=== PATIENT | female | born 1945 | race Caucasian/White ===

== ENCOUNTER 2018-08-15 16:45 | Outpatient (CLI) | payer MEDICARE, SELFPAY ==
[2018-08-15 11:19] LABS: Anion Gap 6.8 mmol/L (3-11); BUN 20 mg/dL (7-18); CO2 27.2 mmol/L (21.0-32.0); CREATININE 0.89 mg/dL (0.55-1.02); Calcium 8.9 mg/dL (8.5-10.1); Chloride 106 mmol/L (98-107); Cholesterol 156 mg/dL (50-200); Glucose 87 mg/dL (70-100); HDL Cholesterol 74 mg/dL (40-60); LDL CHOLESTEROL 74 mg/dL (<100); Potassium 5.1 mmol/L (3.5-5.1); Sodium 140 mmol/L (136-145); Triglyceride 47 mg/dL (30-150)
== END 2018-08-15 17:05 ==
DX: I10 Essential (primary) hypertension (principal); I21.4 Non-ST elevation (NSTEMI) myocardial infarction; I51.7 Cardiomegaly; E78.00 Pure hypercholesterolemia, unspecified
CPT/HCPCS: 36415; 80048; 80061; 83721

== ENCOUNTER 2018-12-20 12:52 | Outpatient (REF) | payer MEDICARE, SELFPAY ==
[2018-12-20 13:51] LABS: Bilirubin Negative (Negative); Blood Moderate (Negative); Clarity Clear; Glucose Negative (Negative); Ketones Negative (Negative); Leukocyte Esterase Trace (Negative); Nitrite Negative (Negative); Specific Gravity 1.015 (1.005-1.025); Urobilinogen 0.2 EU/dL (Up TO 0.2)
[2018-12-20 14:05] LABS: Epithelial Cells Few HPF (Negative); WBC >50 HPF (0-5)
[2018-12-20 14:06] LABS: Bacteria Moderate HPF (Negative); C & S Indicated? Yes; Casts Negative LPF (Negative); Crystals Negative HPF (Negative); Mucus Negative (Negative); Other Cells Few Renal (Negative)
== END 2018-12-20 13:12 ==
LOC: LBN 12:52
DX: N30.01 Acute cystitis with hematuria (principal)
CPT/HCPCS: 87077; 81003; 81015; 87086; 87186

== ENCOUNTER 2019-08-07 02:40 | Outpatient (CLI) | payer MEDICARE, SELFPAY ==
[2019-08-07 11:29] LABS: ALT 33 U/L (14-59); AST 28 U/L (15-37); Albumin 3.6 g/dL (3.4-5.0); Alkaline Phosphatase 80 U/L (46-116); Anion Gap 7.1 mmol/L (3-11); BUN 22 mg/dL (7-18); Bilirubin, Total 0.7 mg/dL (0.2-1.0); CO2 27.9 mmol/L (21.0-32.0); CREATININE 0.83 mg/dL (0.55-1.02); Calcium 9.1 mg/dL (8.5-10.1); Chloride 105 mmol/L (98-107); Glucose 93 mg/dL (70-100); Potassium 4.5 mmol/L (3.5-5.1); Sodium 140 mmol/L (136-145); Total Protein 6.5 g/dL (6.4-8.2)
== END 2019-08-07 03:00 ==
DX: I10 Essential (primary) hypertension (principal); I87.2 Venous insufficiency (chronic) (peripheral)
CPT/HCPCS: 36415; 80053

== ENCOUNTER 2020-10-21 02:49 | Outpatient (CLI) | payer MEDICARE, SELFPAY ==
[2020-10-21 12:52] LABS: ALT 67 U/L (14-59); AST 52 U/L (15-37); Albumin 3.7 g/dL (3.4-5.0); Alkaline Phosphatase 81 U/L (46-116); Anion Gap 5.8 mmol/L (3-11); BUN 23 mg/dL (7-18); Bilirubin, Total 0.6 mg/dL (0.2-1.0); CO2 29.2 mmol/L (21.0-32.0); CREATININE 0.88 mg/dL (0.55-1.02); Calcium 8.9 mg/dL (8.5-10.1); Calculated LDL 85 mg/dL (<100); Chloride 104 mmol/L (98-107); Cholesterol 171 mg/dL (<200); Glucose 81 mg/dL (74-106); HDL Cholesterol 76 mg/dL (40-60); Potassium 4.5 mmol/L (3.5-5.1); Sodium 139 mmol/L (136-145); Total Protein 6.4 g/dL (6.4-8.2); Triglyceride 53 mg/dL (<150)
== END 2020-10-21 03:09 ==
DX: I10 Essential (primary) hypertension (principal)
CPT/HCPCS: 36415; 80053; 80061

== ENCOUNTER 2021-07-17 09:38 | Outpatient (CLI) | payer MEDICARE, SELFPAY ==
--- NOTE | 2021-07-17 09:30 | RT.EKG_ITS ---
APPROVED REPORT Exam: Resting ECG Reason for Exam: Pre-op Patient Location: O HR:55 bpm ECG Measurements Heart Rate 55 AXIS HI 174 P 73 QRSd 94 QRS -36 QT 428 T 37 QTc 410 Conclusion Sinus bradycardia...rate< 60 Left axis deviation...QRS axis (-30,-90)
== END 2021-07-17 09:39 | disposition home or self-care (01) ==
LOC: DI.CM 09:39
DX: Z01.818 Encounter for other preprocedural examination (principal)
CPT/HCPCS: 93010

== ENCOUNTER 2021-07-30 02:14 | Outpatient (CLI) | payer MEDICARE, SELFPAY ==
[2021-07-30 09:28] LABS: Source Nasal/Nares
[2021-07-30 12:04] LABS: COVID-19 PCR Negative (Negative)
== END 2021-07-30 02:15 | disposition home or self-care (01) ==
LOC: LBO 02:14
PROVIDERS: Visit Provider Ophthalmology
DX: Z20.822 Contact with and (suspected) exposure to COVID-19 (principal); Z01.818 Encounter for other preprocedural examination
CPT/HCPCS: 87635

== ENCOUNTER 2021-08-01 07:21 | Day surgery (SDC) | payer MEDICARE, SELFPAY ==
[2021-08-01] MEDS: Tropicam./Phenyleph. (1/2.5%) 5 ML BTL OD ×3 (07:59→08:17)
[2021-08-01 08:13] VITALS: BP 164/56; PULSE 53; RESP 18; TEMP 36.5; O2SAT 97
--- NOTE | 2021-08-01 08:22 | ANES.PREOP_ITS ---
General Info Date of Service Date Performed: 08/01/21 Height: 5 ft 3 in Weight: 61.8 kg Body Mass Index (BMI): 24.1 Surgical Procedure: Operation Date: 08/01/21 09:40 Proposed Procedures Side Surgeon p Cataract Extraction with IOL Implant Right Orlando Santos MD Meds Allergies and Home Medications Allergies Allergy/AdvReac Type Severity Reaction Status Date / Time amoxicillin [From Augmentin] AdvReac Intermediate Diarrhea Verified 08/01/21 08:03 clavulanic acid AdvReac Intermediate Diarrhea Verified 08/01/21 08:03 [From Augmentin] Home Medication Medication Instructions Recorded One Daily Women 50 Plus 1 ea PO daily prn 08/13/16 aspirin [Aspir 81] 1 tab PO DAILY tab-cap 01/26/18 cholecalciferol (vitamin D3) 1 cap PO DAILY 02/16/18 [Vitamin D3] magnesium oxide 1 cap PO DAILY 02/16/18 garlic 1 ea PO DAILY 04/25/18 atorvastatin 20 mg tablet 20 mg PO DAILY #90 tab 12/09/20 metoprolol succinate 25 mg 25 mg PO DAILY #90 tab 12/09/20 tablet,extended release 24 hr lisinopril 2.5 mg tablet 2.5 mg PO DAILY #90 tab-cap 06/03/21 Current Visit Medications: Current Medications Generic Name Dose Route Start Last Admin Trade Name Freq PRN Reason Stop Dose Admin Acetaminophen 1,000 mg 08/01/21 06:00 Acetaminophen 500 Mg Tab PO Q4H PRN PRN Miscellaneous Medication 0 ml 08/01/21 06:00 Prednisolone 1%, Moxifloxacin 0.5%, Nepafenac 0.1% 5ml Btl OD DIRECTED [facility] Miscellaneous Medication 0 ml 08/01/21 06:00 08/01/21 08:17 Tropicam./Phenyleph. (1/2.5%) 5 Ml Btl OD 1 drp DIRECTED [facility] Administration Tetracaine HCl 0 ml 08/01/21 06:00 Tetracaine 0.5% 4 Ml Btl OD DIRECTED [facility] PFSH Active Problems Active Problems: Problem Status Onset Code Allergic rhinitis J30.9 Pre-op examination Z01.818 Nuclear sclerotic cataract of right eye H25.11 Hyperlipidemia E78.5 Venous insufficiency 07/23/16 I87.2 Uterine fibroid D25.9 Transient global amnesia 12/04/16 G45.4 Tinnitus 10/07/15 H93.19 Sensorineural hearing loss, unilateral 10/07/15 H90.5 Primary osteoarthritis of left hip 12/04/16 M16.12 Positional vertigo of both ears 07/25/15 Plantar wart of both feet 08/24/17 B07.0 Osteoporosis M81.0 NSTEMI (non-ST elevated myocardial infarction) 01/26/18 I21.4 Mass of uterus determined by ultrasound 12/04/16 N85.8 Lipoma of neck 07/25/15 D17.0 Essential hypertension 01/26/18 I10 Endometrial thickening on ultrasound 12/08/16 R93.89 Elevated LDL cholesterol level E78.00 Cardiomegaly I51.7 Anxiety 01/26/18 F41.9 Medical History Medical History Abnormal auditory perception (10/07/15) Abnormal finding on ultrasound (12/22/16) Anxiety (01/26/18) Cardiomegaly Cardiomegaly F/U w/ PCP Elevated LDL cholesterol level Endometrial thickening on ultrasound (12/08/16) Essential hypertension (01/26/18) Hyperlipidemia Lipoma of neck (07/25/15) Mass of uterus determined by ultrasound (12/04/16) NSTEMI (non-ST elevated myocardial infarction) (01/26/18) [place]18/18 [place] [facility] [place] Osteoporosis Plantar wart of both feet (08/24/17) Positional vertigo of both ears (07/25/15) Primary osteoarthritis of left hip (12/04/16) Sensorineural hearing loss, unilateral (10/07/15) Tinnitus (10/07/15) Transient global amnesia (12/04/16) One episode. CT negative. Now on ASA 325 mg daily Uterine fibroid Venous insufficiency Venous insufficiency (07/23/16) Surgical History Surgical History Appendectomy (~07/2009) Colonoscopy - MAC (02/01/17) Ligation of fallopian tube (~1979) Tobacco Smoking/Tobacco Use Status: Never Passive smoking exposure: Yes Second hand exposure: Yes Alcohol Alcohol Intake: never Substance Use Substance use: Never Substance use type: does not use Counseling given: No Counseling provided: none Vital Signs and Lab Results Vital Signs Most Recent Vital Signs in EMR: Most Recent Vital Signs Temp Pulse Resp BP Pulse Ox 36.5 C 53 L 18 164/56 H 97 08/01/21 08:13 08/01/21 08:13 08/01/21 08:13 08/01/21 08:13 08/01/21 08:13 Lab Results Blood Type / Crossmatch: No Data to Display Complete Blood Count: No Data to Display Complete Metabolic Panel: No Data to Display Liver Function Panel: No Data to Display Coagulation Panel: No Data to Display Cardiac Panel: No Data to Display Arterial Blood Gas: No Data to Display Venous Blood Gas: No Data to Display Pancreas Panel: No Data to Display Thyroid Panel: No Data to Display Infectious Disease: Coronavirus (COVID-19)(PCR) Negative (Negative) 07/30/21 08:42 07/30/21 Coronavirus 2019 Source Nasal/Nares 07/30/21 08:42 07/30/21 Blood Cultures: No Data to Display Toxicology Panel: No Data to Display Imaging and Studies Imaging and Studies EKG Summary: 06/2021: Exam: Resting ECG Reason for Exam: Pre-op Patient Location: O HR:55 bpm ECG Measurements Heart Rate 55 AXIS MT 174 P 73 QRSd 94 QRS -36 QT 428 T37 QTc 410 Conclusion Sinus bradycardia...rate< 60 Left axis deviation...QRS axis (-30,-90) Echocardiogram Summary: 04/28/2018: Summary: 1. Left ventricle: The cavity size was normal. Systolic function was normal. The estimated ejection fraction was 60-65%. Some parameters suggest diastolic dysfunction. There was no evidence of elevated ventricular filling pressure by Doppler parameters. 2. Aortic valve: There was mild regurgitation. 3. Mitral valve: There was mild regurgitation. 4. Right ventricle: The cavity size was normal. Wall thickness was normal. Systolic function was normal. 5. Right atrium: The atrium was mildly dilated. 6. Atrial septum: There was a small patent foramen ovale. There was a small [id number] shunt. 7. Tricuspid valve: There was moderate regurgitation. 8. Pulmonary arteries: Pulmonary systolic pressure was in the range of 30mm Hg to 40mm Hg. 9. Inferior vena cava: The vessel was patent and normal in size. The respirophasic diameter changes were in the normal range (greater than or equal to 50%), consistent with normal central venous pressure. Anesthesia Assessment and Plan Anesthesia History Personal History: No History of Anesthesia Complications Family History: No Family History of Anesthesia Complications Exercise Tolerance Exercise Tolerance: Metabolic Equivalents>4 Cardiac & Pulmonary Exam Cardiac Exam: Normal S1/S2 Heart Sounds Pulmonary Exam: Clear Bilateral Breath Sounds Airway Exam Known Difficult Airway: No Mallampati Class: 2 Mouth Opening: Normal (> 3cm) Thyromental Distance: Greater than 3 cm Neck Range of Motion: Full ROM Neck Circumference: Normal Teeth Condition: Removable Dentures/Plates Upper ASA Classification ASA Score: ASA 3 Emergency Case?: No NPO Status NPO Status: NPO Clears >2 hours, Solids >8 hours Anesthesia Plan Resuscitation Status: Full Code Anesthesia Technique: MAC Anesthesia Airway Planned: Natural Airway Pain Management: Surgeon and patient request nerve block Monitors Used: Standard Monitors
[2021-08-01 08:25] VITALS: BMI 24.1
[2021-08-01] MEDS: Povidone-Iodine Ophth 30 ML BTL (09:11)
[2021-08-01] MEDS: Lidocaine 1% Pres-Free 5 ML VIAL (09:13)
[2021-08-01] MEDS: Lidocaine 2% Jelly 6 ML SYR (09:13)
[2021-08-01] MEDS: Duovisc Viscoelastic System EACH 1 EACH (09:14)
[2021-08-01] MEDS: Balanced Salt Soln.-PLUS 500 ML BAG (09:15)
[2021-08-01] MEDS: Tetracaine 0.5% 4 ML BTL OD (09:30)
--- NOTE | 2021-08-01 09:39 | W.PM.DSUDISC ---
Discharge Plan Disposition Patient Disposition: HOME Condition: Good Discharge Details Attending Provider: Orlando Santos Primary Care Provider: Natali Lewis Home Meds and New Rx's Prescriptions: No Action atorvastatin 20 mg tablet 20 mg PO DAILY Qty: 90 RF: 3 metoprolol succinate 25 mg tablet extended release 24 hr 25 mg PO DAILY Qty: 90 RF: 3 One Daily Women 50 Plus 1 EACH tablet 1 ea PO daily prn RF: 0 aspirin [Aspir-81] 81 MG tablet,delayed release (DR/EC) 1 tab PO DAILY RF: 0 cholecalciferol (vitamin D3) [Vitamin D3] 1,000 UNIT capsule 1 cap PO DAILY RF: 0 magnesium oxide 400 MG capsule 1 cap PO DAILY RF: 0 garlic 1 EACH tablet 1 ea PO DAILY RF: 0 lisinopril 2.5 mg tablet 2.5 mg PO DAILY Qty: 90 RF: 3 Discharge Instructions Stand Alone Forms: Post-op Topical Cataract, Sj Ganey (DSU) Discharge Orders Discharge Orders: Discharge Order (Routine); Ordered 08/01/21 Ordered By: Orlando Santos DS: Diagnosis Discharge Diagnosis (1) Nuclear sclerotic cataract of right eye: Status: Resolved
[2021-08-01 09:40] VITALS: BP 144/62; PULSE 61; RESP 16; TEMP 36; O2SAT 97
--- NOTE | 2021-08-01 09:41 | ROE_ITS ---
Date of service: 08/01/21 Time of Service: 09:42 Operative Note Operative Note DATE OF PROCEDURE: 08/01/21 PRE-OP DIAGNOSIS: Nuclear cataract, right eye POST-OP DIAGNOSIS: same PROCEDURE: Cataract extraction using phacoemulsification with intraocular lens implant, right eye SURGEON: Orlando Santos ANESTHESIA TYPE: Local By Surgeon and MAC Refer to Anesthesia Record ESTIMATED BLOOD LOSS: 0 PATHOLOGY: none sent COMPLICATIONS: None Patient was transported to: same day Patient's condition: stable Implants: Fidel & Fidel/EVER Tecnis [id number] Indications: Progressive visual loss due to cataract, right eye Procedure Description: CATARACT SURGERY OPERATIVE REPORT PREOPERATIVE DIAGNOSIS: 1. Nuclear cataract, right eye POSTOPERATIVE DIAGNOSIS: Same OPERATION: 1. Cataract extraction using phacoemulsification with posterior chamber intraocular lens implant, right eye. IOL: IOL [employer]/Model: Fidel & Fidel / EVER Tecnis [id number] IOL Power: + 22.0 diopters IOL Serial Number: [id number] Optic Diameter: 6.0mm Haptic/Overall Diameter: 13.0mm PHACO INFO: [employer] Vision System with OZil and Active [employer]uidics Cumulative Dispersed Energy (CDE): 11.7 seconds SURGEON: Orlando Santos MD, CHRISSY ANESTHESIA: Monitored Anesthesia Care (MAC), with local sub-tenon's anesthetic infiltration COMPLICATIONS: None SPECIMENS: None INDICATIONS FOR PROCEDURE: The patient is a 76-year-old lady with history of diminished visual acuity in her right eye secondary to the development of significant nuclear cataract. The option of cataract surgery was offered to the patient and she felt she was symptomatic enough that she wished to proceed. PROCEDURE: The correct surgical eye was identified and marked as the right eye and the pupil was dilated in the preoperative area using mydriatics and cycloplegics. The dilated pupil size was 6.5 mm. She elected to proceed without sedation. The patient was brought to the operating room where cardiopulmonary monitoring was instituted and surgical time-out was performed, confirming the correct operative eye and IOL power. Topical anesthesia was administered and ophthalmic povidone-iodine 5% was instilled into the conjunctival fornices. Lidocaine gel was applied to the cornea and the joaquin-ocular area was prepped with Betadine 10% solution and draped in the usual sterile fashion for intraocular surgery, including an aperture drape. A Tegaderm transparent film dressing was cut in half and used to cover the lashes and lid margins. Care was taken to sequester the lashes and lid margins under the Tegaderm dressing. A lid speculum was placed between the lids of the operative eye and the Kaitlyn-Eldon operating microscope was maneuvered into position. She was noted to have significant blepharospasm. Veena scissors were then used to make a conjunctival buttonhole approximately 6mm posterior to the limbus in the inferonasal quadrant. Blunt dissection was carried out to expose bare sclera, and a blunt-tipped sub-tenon?s anesthesia cannula was introduced and passed posteriorly along the globe where non- preserved plain lidocaine was injected into posterior sub-Tenon?s space. A sideport knife was used to make a paracentesis port inferotemporally. Intrao cular phenylephrine/lidocaine was injected into the anterior chamber. The anterior chamber was filled with viscoelastic. A 2.4mm keratome knife was used to create a half-thickness groove at the limbus and then to construct a three- plane near-clear corneal tunnel extending 2.0mm into clear cornea superiortemporally. A flap was raised on the anterior capsule and capsulorhexis forceps were used to complete a continuous curvilinear capsulorhexis of 5.0 mm. Balanced salt solution was then used to perform cortical cleaving hydrodissection and nuclear hydrodelineation until the lens could be freely rotated within the capsular bag. The lens nucleus was then disassembled and removed within the capsular bag and iris plane using phacoemulsification. Residual cortical material was removed using the I/A handpiece. The posterior capsule was carefully polished to remove as much residual lens epithelial cells as safely possible. The capsular bag was then inflated and the anterior chamber deepened with viscoelastic. The lens implant described above was inserted into the capsular bag using the EVER [employer] Injector. A Kuglen hook was used to dial the IOL into position. Residual viscoelastic was then removed first from posterior to the IOL, then from the anterior chamber using the I/A handpiece. The lens implant was noted to center nicely within the capsular bag. The incisions were stromally hydrated, and the anterior chamber was reformed using BSS. Then 0.5cc of moxifloxacin 1.0mg/ml were injected into the capsular bag and anterior chamber. The incisions were checked with a Weck spear and found to be secure. Several drops of ophthalmic povidone-iodine 5% were then applied to the eye followed by two drops of Imprimis combination prednisolone/moxifloxacin/nepafenac solution. The drapes were removed and a clear plastic protective eye shield was placed over the eye. The patient was then returned to Same Day Surgery in stable condition.
--- NOTE | 2021-08-01 09:59 | W.ANESPOSTOP ---
Postoperative Evaluation Date, Time and Location Date Performed: 08/01/21 Time Performed: 09:45 Patient Location: Day Surgery Unit Vital Signs Most Recent Imported Vital Signs: Most Recent Vital Signs Temp Pulse Resp BP Pulse Ox 36 C L 61 16 144/62 H 97 08/01/21 09:40 08/01/21 09:40 08/01/21 09:40 08/01/21 09:40 08/01/21 09:40 Pain Score Most Recent Pain Score: Most Recent Pain Score Pain Level 0 08/01/21 09:40 Assessment Mental Status: Awake (Alert & Oriented to Patient Baseline) Airway and Respiratory Function: Patent airway with normal (patient baseline) respiratory exam Cardiovascular Function: Hemodynamically Stable Hydration Status: Adequately Hydrated Nausea & Vomiting: No Nausea or Vomiting Pain: Pt. Denies Any Pain Peripheral Nerve Block: Patient did not receive a nerve block
== END 2021-08-01 10:05 | disposition home or self-care (01) ==
PROVIDERS: Visit Provider Ophthalmology
PROC: (CPT 66984; principal; 2021-08-01 09:30)
DX: H25.11 Age-related nuclear cataract, right eye (principal); E78.5 Hyperlipidemia, unspecified; I10 Essential (primary) hypertension
CPT/HCPCS: 66984; V2632

== ENCOUNTER 2021-08-13 01:58 | Outpatient (CLI) | payer MEDICARE, SELFPAY ==
[2021-08-13 10:17] LABS: Source Nasal/Nares
[2021-08-13 13:53] LABS: COVID-19 PCR Negative (Negative)
== END 2021-08-13 01:59 | disposition home or self-care (01) ==
LOC: LBO 01:58
PROVIDERS: Visit Provider Ophthalmology
DX: Z20.822 Contact with and (suspected) exposure to COVID-19 (principal); Z01.818 Encounter for other preprocedural examination
CPT/HCPCS: 87635

== ENCOUNTER 2021-08-15 07:34 | Day surgery (SDC) | payer MEDICARE, SELFPAY ==
[2021-08-15 07:59] VITALS: BP 116/84; PULSE 58; RESP 24; TEMP 36.4; O2SAT 97
[2021-08-15] MEDS: Tropicam./Phenyleph. (1/2.5%) 5 ML BTL OS ×3 (08:05→08:15)
--- NOTE | 2021-08-15 08:27 | ANES.PREOP_ITS ---
General Info Date of Service Date Performed: 08/15/21 Height: 5 ft 3 in Weight: 61.6 kg Body Mass Index (BMI): 24.0 Surgical Procedure: Operation Date: 08/15/21 09:40 Proposed Procedures Side Surgeon p Cataract Extraction with IOL Implant Left Orlando Santos MD Meds Allergies and Home Medications Allergies Allergy/AdvReac Type Severity Reaction Status Date / Time amoxicillin [From Augmentin] AdvReac Intermediate Diarrhea Verified 08/15/21 07:54 clavulanic acid AdvReac Intermediate Diarrhea Verified 08/15/21 07:54 [From Augmentin] Home Medication Medication Instructions Recorded One Daily Women 50 Plus 1 ea PO daily prn 08/13/16 aspirin [Aspir 81] 1 tab PO DAILY tab-cap 01/26/18 cholecalciferol (vitamin D3) 1 cap PO DAILY 02/16/18 [Vitamin D3] magnesium oxide 1 cap PO DAILY 02/16/18 garlic 1 ea PO DAILY 04/25/18 atorvastatin 20 mg tablet 20 mg PO DAILY #90 tab 12/09/20 metoprolol succinate 25 mg 25 mg PO DAILY #90 tab 12/09/20 tablet,extended release 24 hr lisinopril 2.5 mg tablet 2.5 mg PO DAILY #90 tab-cap 06/03/21 Current Visit Medications: Current Medications Generic Name Dose Route Start Last Admin Trade Name Freq PRN Reason Stop Dose Admin Acetaminophen 1,000 mg 08/15/21 06:00 Acetaminophen 500 Mg Tab PO Q4H PRN PRN Miscellaneous Medication 0 ml 08/15/21 06:00 Prednisolone 1%, Moxifloxacin 0.5%, Nepafenac 0.1% 5ml Btl OS DIRECTED [facility] Miscellaneous Medication 0 ml 08/15/21 06:00 08/15/21 08:15 Tropicam./Phenyleph. (1/2.5%) 5 Ml Btl OS 1 drp DIRECTED [facility] Administration Tetracaine HCl 0 ml 08/15/21 06:00 Tetracaine 0.5% 4 Ml Btl OS DIRECTED [facility] PFSH Active Problems Active Problems: Problem Status Onset Code Allergic rhinitis J30.9 Pre-op examination Z01.818 Nuclear sclerotic cataract of right eye H25.11 Nuclear sclerotic cataract of left eye H25.12 Hyperlipidemia E78.5 Venous insufficiency 07/23/16 I87.2 Uterine fibroid D25.9 Transient global amnesia 12/04/16 G45.4 Tinnitus 10/07/15 H93.19 Sensorineural hearing loss, unilateral 10/07/15 H90.5 Primary osteoarthritis of left hip 12/04/16 M16.12 Positional vertigo of both ears 07/25/15 Plantar wart of both feet 08/24/17 B07.0 Osteoporosis M81.0 NSTEMI (non-ST elevated myocardial infarction) 01/26/18 I21.4 Mass of uterus determined by ultrasound 12/04/16 N85.8 Lipoma of neck 07/25/15 D17.0 Essential hypertension 01/26/18 I10 Endometrial thickening on ultrasound 12/08/16 R93.89 Elevated LDL cholesterol level E78.00 Cardiomegaly I51.7 Anxiety 01/26/18 F41.9 Medical History Medical History Abnormal auditory perception (10/07/15) Abnormal finding on ultrasound (12/22/16) Anxiety (01/26/18) Cardiomegaly Cardiomegaly F/U w/ PCP Elevated LDL cholesterol level Endometrial thickening on ultrasound (12/08/16) Essential hypertension (01/26/18) Hyperlipidemia Lipoma of neck (07/25/15) Mass of uterus determined by ultrasound (12/04/16) NSTEMI (non-ST elevated myocardial infarction) (01/26/18) [place] [facility] [place]osis Plantar wart of both feet (08/24/17) Positional vertigo of both ears (07/25/15) Primary osteoarthritis of left hip (12/04/16) Sensorineural hearing loss, unilateral (10/07/15) Tinnitus (10/07/15) Transient global amnesia (12/04/16) One episode. CT negative. Now on ASA 325 mg daily Uterine fibroid Venous insufficiency Venous insufficiency (07/23/16) Surgical History Surgical History (Updated 08/15/21 @ 07:54 by Ayanna Abraham) Appendectomy (~07/2009) Colonoscopy - MAC (02/01/17) Hx of cataract surgery Ligation of fallopian tube (~1979) Tobacco Smoking/Tobacco Use Status: Never Passive smoking exposure: Yes Second hand exposure: Yes Alcohol Alcohol Intake: never Substance Use Substance use: Never Substance use type: does not use Counseling given: No Counseling provided: none Vital Signs and Lab Results Vital Signs Most Recent Vital Signs in EMR: Most Recent Vital Signs Temp Pulse Resp BP Pulse Ox 36.4 C L 58 L 24 116/84 97 08/15/21 07:59 08/15/21 07:59 08/15/21 07:59 08/15/21 07:59 08/15/21 07:59 Lab Results Blood Type / Crossmatch: No Data to Display Complete Blood Count: No Data to Display Complete Metabolic Panel: No Data to Display Liver Function Panel: No Data to Display Coagulation Panel: No Data to Display Cardiac Panel: No Data to Display Arterial Blood Gas: No Data to Display Venous Blood Gas: No Data to Display Pancreas Panel: No Data to Display Thyroid Panel: No Data to Display Infectious Disease: Coronavirus (COVID-19)(PCR) Negative (Negative) 08/13/21 09:04 08/13/21 Coronavirus 2019 Source Nasal/Nares 08/13/21 09:04 08/13/21 Blood Cultures: No Data to Display Toxicology Panel: No Data to Display Imaging and Studies Imaging and Studies EKG Summary: 06/2021: Exam: Resting ECG Reason for Exam: Pre-op Patient Location: O HR:55 bpm ECG Measurements Heart Rate 55 AXIS SC 174 P 73 QRSd 94 QRS -36 QT 428 T37 QTc 410 Conclusion Sinus bradycardia...rate< 60 Left axis deviation...QRS axis (-30,-90) Echocardiogram Summary: 04/28/2018: Summary: 1. Left ventricle: The cavity size was normal. Systolic function was normal. The estimated ejection fraction was 60-65%. Some parameters suggest diastolic dysfunction. There was no evidence of elevated ventricular filling pressure by Doppler parameters. 2. Aortic valve: There was mild regurgitation. 3. Mitral valve: There was mild regurgitation. 4. Right ventricle: The cavity size was normal. Wall thickness was normal. Systolic function was normal. 5. Right atrium: The atrium was mildly dilated. 6. Atrial septum: There was a small patent foramen ovale. There was a small [id number] shunt. 7. Tricuspid valve: There was moderate regurgitation. 8. Pulmonary arteries: Pulmonary systolic pressure was in the range of 30mm Hg to 40mm Hg. 9. Inferior vena cava: The vessel was patent and normal in size. The respirophasic diameter changes were in the normal range (greater than or equal to 50%), consistent with normal central venous pressure. Anesthesia Assessment and Plan Anesthesia History Personal History: No History of Anesthesia Complications Family History: No Family History of Anesthesia Complications Exercise Tolerance Exercise Tolerance: Metabolic Equivalents>4 Pertinent Negatives Pertinent Negatives: No Symptoms of GERD and No Major Pulmonary Symptoms or Complaints Cardiac & Pulmonary Exam Cardiac Exam: Normal S1/S2 Heart Sounds and Other (Patent PFO) Pulmonary Exam: Clear Bilateral Breath Sounds Airway Exam Known Difficult Airway: No Mallampati Class: 2 Mouth Opening: Normal (> 3cm) Thyromental Distance: Greater than 3 cm Neck Range of Motion: Full ROM Neck Circumference: Normal Teeth Condition: Removable Dentures/Plates Upper ASA Classification ASA Score: ASA 3 Emergency Case?: No NPO Status NPO Status: NPO Clears >2 hours, Solids >8 hours Anesthesia Plan Resuscitation Status: Full Code Anesthesia Technique: MAC Anesthesia Airway Planned: Natural Airway Monitors Used: Standard Monitors
[2021-08-15 08:51] VITALS: BMI 24.0
[2021-08-15] MEDS: Lactated Ringers 1,000 ML 75 ML IV (09:00)
[2021-08-15] MEDS: Balanced Salt Soln.-PLUS 500 ML BAG (09:21)
[2021-08-15] MEDS: Tetracaine 0.5% 4 ML BTL OS (09:21)
[2021-08-15] MEDS: Lidocaine 2% Jelly 6 ML SYR (09:22)
[2021-08-15] MEDS: Duovisc Viscoelastic System EACH 1 EACH (09:22)
[2021-08-15] MEDS: Povidone-Iodine Ophth 30 ML BTL (09:23)
[2021-08-15] MEDS: Lidocaine 1% Pres-Free 5 ML VIAL (09:24)
--- NOTE | 2021-08-15 09:44 | W.PM.DSUDISC ---
Discharge Plan Disposition Patient Disposition: HOME Condition: Good Discharge Details Attending Provider: Orlando Santos Primary Care Provider: Natali Lewis Home Meds and New Rx's Prescriptions: No Action atorvastatin 20 mg tablet 20 mg PO DAILY Qty: 90 RF: 3 metoprolol succinate 25 mg tablet extended release 24 hr 25 mg PO DAILY Qty: 90 RF: 3 One Daily Women 50 Plus 1 EACH tablet 1 ea PO daily prn RF: 0 aspirin [Aspir-81] 81 MG tablet,delayed release (DR/EC) 1 tab PO DAILY RF: 0 cholecalciferol (vitamin D3) [Vitamin D3] 1,000 UNIT capsule 1 cap PO DAILY RF: 0 magnesium oxide 400 MG capsule 1 cap PO DAILY RF: 0 garlic 1 EACH tablet 1 ea PO DAILY RF: 0 lisinopril 2.5 mg tablet 2.5 mg PO DAILY Qty: 90 RF: 3 Discharge Instructions Stand Alone Forms: Post-op Topical Cataract, Press Ganey (DSU) Discharge Orders Discharge Orders: Discharge Order (Routine); Ordered 08/15/21 Ordered By: Orlando Santos DS: Diagnosis Discharge Diagnosis (1) Nuclear sclerotic cataract of left eye: Status: Resolved
[2021-08-15 09:45] VITALS: BP 141/50; PULSE 52; RESP 16; TEMP 36.4; O2SAT 100
--- NOTE | 2021-08-15 09:45 | ROE_ITS ---
Date of service: 08/15/21 Time of Service: 09:45 Operative Note Operative Note DATE OF PROCEDURE: 08/15/21 PRE-OP DIAGNOSIS: Nuclear cataract, left eye, symptomatic POST-OP DIAGNOSIS: same PROCEDURE: Cataract extraction using phacoemulsification with intraocular lens implant, left eye SURGEON: Orlando Santos ANESTHESIA TYPE: Local By Surgeon and MAC Refer to Anesthesia Record PATHOLOGY: none sent COMPLICATIONS: None Patient was transported to: same day Patient's condition: stable Implants: Fidel and Fidel / [employer] Tecnis [id number] Indications: Progressive decreased vision due to cataract, left eye Procedure Description: CATARACT SURGERY OPERATIVE REPORT PREOPERATIVE DIAGNOSIS: 1. Nuclear cataract, left eye, symptomatic POSTOPERATIVE DIAGNOSIS: Same OPERATION: 1. Cataract extraction using phacoemulsification with posterior chamber intraocular lens implant, left eye. IOL: IOL Paper Folder/Model: Fidel & Fidel / EVER Tecnis [id number] IOL Power: + 22.0 diopters IOL Serial Number: [id number] Optic Diameter: 6.0 mm Haptic/Overall Diameter: 13.0 mm PHACO INFO: JamaOtto Claveurion Vision System with OZil and Active Fluidics Cumulative Dispersed Energy (CDE): 16.18 seconds SURGEON: Orlando Santos MD, CHRISSY ANESTHESIA: Monitored A [facility] (MAC), with local sub-tenon's anesthetic infiltration COMPLICATIONS: None SPECIMENS: None INDICATIONS FOR PROCEDURE: The patient is a 76-year-old lady with history of diminished visual acuity in both eyes secondary to the development of bilateral cataracts. She has already undergone cataract surgery in the right eye and is doing well postoperatively. She now presents for cataract surgery in the left eye. PROCEDURE: The correct surgical eye was identified and marked as the left eye and the pupil was dilated in the preoperative area using mydriatics and cycloplegics. The dilated pupil size was 7.0 mm. Oral sedation was administered in the form of an Imprimis MKO Melt (midazolam 3mg/ketamine 25mg/ondansetron 2mg). The patient was brought to the operating room where cardiopulmonary monitoring was instituted and surgical time-out was performed, confirming the correct operative eye and IOL power. Topical anesthesia was administered and ophthalmic povidone-iodine 5% was instilled into the conjunctival fornices. Lidocaine gel was applied to the cornea and the joaquin-ocular area was prepped with Betadine 10% solution and draped in the usual sterile fashion for intraocular surgery, including an aperture drape. A Tegaderm transparent film dressing was cut in half and used to cover the lashes and lid margins. She exhibited significant squeezing and blepharospasm. Care was taken to sequester the lashes and lid margins under the Tegaderm dressing. A lid speculum was placed between the lids of the operative eye and the Kaitlyn-Eldon operating microscope was maneuvered into position. Veena scissors were then used to make a conjunctival buttonhole approximately 6mm posterior to the limbus in the inferonasal quadrant. Blunt dissection was carried out to expose bare sclera, and a blunt-tipped sub-tenon?s anesthesia cannula was introduced and passed posteriorly along the globe where non- preserved plain lidocaine was injected into posterior sub-Tenon?s space. She had a very strong Ricardo's phenomenon. Forceps had to be used to bring the eye into primary position for surgical maneuvers. A sideport knife was used to make a paracentesis port superiorly/superiortemporally. Intraocular phenylephrine/lidocaine was injected int the anterior chamber.. The anterior chamber was filled with viscoelastic. A 2.4mm keratome knife was used to create a half-thickness groove at the limbus and then to construct a three-plane near- clear corneal tunnel extending 2.0mm into clear cornea at the 3:00 position. A flap was raised on the anterior capsule and capsulorhexis forceps were used to complete a continuous curvilinear capsulorhexis of 5.5 mm. Balanced salt solution was then used to perform cortical cleaving hydrodissection and nuclear hydrodelineation until the lens could be freely rotated within the capsular bag. The lens nucleus was then disassembled and removed within the capsular bag and iris plane using phacoemulsification. Residual cortical material was removed using the 45-degree angled silicone I/A tip with 0.3mm port. The posterior capsule was carefully polished to remove as much residual lens epithelial cells as safely possible. The capsular bag was then inflated and the anterior chamber deepened with viscoelastic. The lens implant described above was inserted into the capsular bag using the EVER [place] Injector. A Kuglen hook was used to dial the IOL into position. Residual viscoelastic was then removed first from posterior to the IOL, then from the anterior chamber using the I/A handpiece. The lens implant was noted to center nicely within the capsular bag. The incisions were stromally hydrated, and the anterior chamber was reformed using BSS. Then 0.5cc of moxifloxacin 1.0mg/ml were injected into the capsular bag and anterior chamber. The incisions were checked with a Weck spear and found to be secure. Several drops of ophthalmic povidone-iodine 5% were then applied to the eye followed by two drops of Imprimis combination prednisolone/moxifloxacin/nepafenac solution. The drapes were removed and a clear plastic protective eye shield was placed over the eye. The patient was then returned to Same Day Surgery in stable condition.
[2021-08-15 10:04] VITALS: BP 134/53; PULSE 56; RESP 18; TEMP 36.4; O2SAT 97
--- NOTE | 2021-08-15 10:47 | W.ANESPOSTOP ---
Postoperative Evaluation Date, Time and Location Date Performed: 08/15/21 Time Performed: 10:05 Patient Location: Day Surgery Unit Vital Signs Most Recent Imported Vital Signs: Most Recent Vital Signs Temp Pulse Resp BP Pulse Ox 36.4 C L 56 L 18 134/53 L 97 08/15/21 10:04 08/15/21 10:04 08/15/21 10:04 08/15/21 10:04 08/15/21 10:04 Pain Score Most Recent Pain Score: Most Recent Pain Score Pain Level 0 08/15/21 10:04 Assessment Mental Status: Awake (Alert & Oriented to Patient Baseline) Airway and Respiratory Function: Patent airway with normal (patient baseline) respiratory exam Cardiovascular Function: Hemodynamically Stable Hydration Status: Adequately Hydrated Nausea & Vomiting: No Nausea or Vomiting Pain: Pt. Denies Any Pain Peripheral Nerve Block: Patient did not receive a nerve block
== END 2021-08-15 10:12 | disposition home or self-care (01) ==
PROVIDERS: Visit Provider Ophthalmology
PROC: (CPT 66984; principal; 2021-08-15 09:30)
DX: H25.12 Age-related nuclear cataract, left eye (principal); I87.2 Venous insufficiency (chronic) (peripheral); I10 Essential (primary) hypertension; E78.5 Hyperlipidemia, unspecified
CPT/HCPCS: 66984; V2632

== ENCOUNTER 2022-02-05 02:22 | Outpatient (CLI) | payer MEDICARE, SELFPAY ==
[2022-02-05 08:45] LABS: ALT 24 U/L (14-59); AST 18 U/L (15-37); Albumin 3.9 g/dL (3.4-5.0); Alkaline Phosphatase 86 U/L (46-116); Anion Gap 8.2 mmol/L (3-11); BUN 18 mg/dL (7-18); Bilirubin, Total 0.5 mg/dL (0.2-1.0); CO2 27.8 mmol/L (21.0-32.0); CREATININE 0.9 mg/dL (0.55-1.02); Calcium 9.2 mg/dL (8.5-10.1); Calculated LDL 88 mg/dL (<100); Chloride 105 mmol/L (98-107); Cholesterol 175 mg/dL (<200); Glucose 91 mg/dL (74-106); HDL Cholesterol 80 mg/dL (40-60); Sodium 141 mmol/L (136-145); Total Protein 6.7 g/dL (6.4-8.2); Triglyceride 35 mg/dL (<150)
== END 2022-02-05 02:23 | disposition home or self-care (01) ==
LOC: LBO 02:22
DX: I10 Essential (primary) hypertension (principal); E78.00 Pure hypercholesterolemia, unspecified
CPT/HCPCS: 36415; 80053; 80061

== ENCOUNTER 2022-04-13 00:08 | Emergency (ER) | payer MEDICARE, SELFPAY ==
[2022-04-13 00:18] VITALS: BP 186/69; PULSE 74; RESP 18; TEMP 36.3; O2SAT 99
--- NOTE | 2022-04-13 00:30 | DI.CT_ITS ---
Exam(s) CT ABDOMEN PELVIS WO EXAM: CT ABDOMEN PELVIS WO CLINICAL HISTORY: rlq abd pain, nausea, vomiting. TECHNIQUE: Imaging Protocol: Axial computed tomography images with coronal and sagittal reformatted images were created and reviewed. Oral contrast was administered. COMPARISON: No exams were available for comparison FINDINGS: The examination is limited due to patient motion artifact. ABDOMEN: Lung Bases: Cardiomegaly is present. There is a small hiatal hernia. There is calcified granuloma i n the right lower lobe. Liver: Normal density. No measurable mass. Gallbladder and biliary tract: No radiodense calculus or biliary ductal dilation. Pancreas: Normal density, no abnormal calcifications or inflammatory process. Spleen: Normal. Kidneys: Normal size, contour and axis.There is a 2 mm nonobstructing stone in the lower pole of the right kidney. There is mild prominence of the right renal pelvis. The right ureter is of normal calib er. No ureteral stone is seen. No masses seen. Adrenal glands: No mass is seen. Lymph nodes: Within normal limits. Abdominal Aorta: Abdominal portion non-dilated. Atherosclerosis is present. PELVIS: Bladder:Symmetric distention, no gross wall thickening. Bowel: No obstruction or bowel wall thickening. No evidence of appendicitis. Peritoneal cavity: No ascites, collection or mesenteric inflammatory response. No free air. Reproductive organs: Within normal limits. Bones: Within normal limits. Soft Tissues: There is a fat containing umbilical hernia. IMPRESSION: 1. Right nephrolithiasis. 2. Prominence of the right renal pelvis but normal caliber right ureter. A recently passed stone asher ot be entirely excluded. RADIATION DOSE DELIVERED: 669.28mGy.cm Total DLP DATA REPOSITORY: All CT scans at this facility are submitted to the National Radiology Data Registry (NRDR) Dose Index Registry (DIR) with the [employer] (ACR). RADIATION OPTIMIZATION: All CT scans at this facility use at least one of these dose optimization te chniques: automated exposure control; mA and/or kV adjustment per patient size (includes targeted exa ms where dose is matched to clinical indication); or iterative reconstruction.
--- NOTE | 2022-04-13 00:57 | W.ED.GENAD ---
Discharge Plan Disposition Patient Disposition: HOME Condition: Improving Discharge Details Chief Complaint: Abd Prob Clinical Impression: Kidney stone Primary Care Provider: Natali Lewis ED Provider: Orlando Desir Home Meds and New Rx's Prescriptions: No Action Shingrix (PF) 50 mcg/0.5 mL suspension for reconstitution 0.5 ml IM ONCE Qty: 1 0RF Rx Instructions: as a single dose now and repeat in 2-6 months [place] 952-1,347 mg powder in packet 1 applic topical TID-QID PRN (Reason: skin irritation) Qty: 12 0RF One Daily Women 50 Plus 1 EACH tablet 1 ea PO daily prn aspirin [Aspir-81] 81 MG tablet,delayed release (DR/EC) 1 tab PO DAILY cholecalciferol (vitamin D3) [Vitamin D3] 1,000 UNIT capsule 1 cap PO DAILY magnesium oxide 400 MG capsule 1 cap PO DAILY garlic 1 EACH tablet 1 ea PO DAILY atorvastatin 20 mg tablet 20 mg PO DAILY Qty: 90 3RF metoprolol succinate 25 mg tablet extended release 24 hr 25 mg PO DAILY Qty: 90 3RF Discharge Instructions Instructions: Kidney Stones (ED) Additional Instructions: Please follow-up with your primary care physician. Please ensure that you are staying hydrated. Please return to the emergency department if you have any worsening symptoms such as fevers chills severe pain nausea vomiting or any other abnormal symptoms. Medical Decision Making 77-year-old female presents with acute onset right lower quadrant abdominal pain, distention, nausea vomiting over the past several hours, no active vomiting, mildly distended, nonperitoneal, appears moderately uncomfortable, slightly dry on exam, passed 3 bowel movements within the last several hours the last being soft the first being formed and hard. Normal colonoscopy in the last several years, and remote appendectomy. Concern for obstruction versus colitis versus UTI versus kidney stone versus hernia versus less likely pathology. Screening labs fluids antiemetics analgesia imaging 04: 58 labs imaging consistent with likely passed kidney stone. Patient resting comfortably no acute distress no nausea or vomiting in department. Had a bowel movement and is tolerating p.o. Son is coming to pick her up. HPI General Date/Time Provider Initiated Documentation: 04/13/22 00:20. HPI Narrative: 77-year-old female history of appendectomy, hypertension hyperlipidemia, presents with acute onset right lower abdominal discomfort nausea vomiting that began around 10 PM yesterday evening. Has had 3 bowel movements since then the first being hard and formed and the last 1 being soft. No further vomiting after 1 episode. Endorses normal colonoscopy within the last several years. Related Data Home Medications Medication Instructions Recorded Confirmed multivitamin with [id number] 1 ea PO daily prn 08/13/16 02/17/22 400 mcg-120 mg tablet (One Daily Women 50 Plus) aspirin 81 mg tablet,delayed 1 tab PO DAILY 01/26/18 04/13/22 release (Aspir-) cholecalciferol (vitamin D3) 25 1 cap PO DAILY 02/16/18 02/17/22 mcg (1,000 unit) capsule (Vitamin D3) magnesium oxide 1 cap PO DAILY 02/16/18 02/17/22 garlic 1 ea PO DAILY 04/25/18 02/17/22 calcium acetate 952 mg-aluminum 1 applic topical TID-QID PRN skin 11/10/21 02/17/22 sulfate 1,347 mg topical powder irritation #12 ea packet ([place]) atorvastatin 20 mg tablet 20 mg PO DAILY #90 tabs 12/31/21 04/13/22 metoprolol succinate 25 mg 25 mg PO DAILY #90 tabs 12/31/21 04/13/22 tablet,extended release 24 hr varicella-zoster glycoE [id number] 0.5 ml IM ONCE #1 ea 02/17/22 02/17/22 adj(PF) 50 mcg/0.5 mL IM susp, kit (Shingrix (PF)) Previous Rx's Medication Instructions Recorded calcium acetate 952 mg-aluminum 1 applic topical TID-QID PRN skin 11/10/21 sulfate 1,347 mg topical powder irritation #12 ea packet ([place]) atorvastatin 20 mg tablet 20 mg PO DAILY #90 tabs 12/31/21 metoprolol succinate 25 mg 25 mg PO DAILY #90 tabs 12/31/21 tablet,extended release 24 hr varicella-zoster glycoE [id number] 0.5 ml IM ONCE #1 ea 02/17/22 adj(PF) 50 mcg/0.5 mL IM susp, kit (Shingrix (PF)) Allergies Allergy/AdvReac Type Severity Reaction Status Date / Time amoxicillin [From Augmentin] AdvReac Intermediate Diarrhea Verified 04/13/22 00:26 clavulanic acid AdvReac Intermediate Diarrhea Verified 04/13/22 00:26 [From Augmentin] General Stated Complaint: Abd Prob CARISSA: 2 Review of Systems Narrative: Review of Systems Constitutional: negative Eyes: negative ENT: negative Cardiovascular: negative Respiratory: negative Gastrointestinal: Abdominal pain nausea vomiting : negative Musculoskeletal: negative Skin: negative Neurologic: negative Psych: negative PFSH All Active Problems (Updated 04/13/22 @ 05:00 by Orlando Desir MD) Kidney stone (Chronic) Advanced directives, counseling/discussion (Acute) Allergic rhinitis (Acute) Hyperlipidemia (Acute) Venous insufficiency (Chronic 07/23/16) Uterine fibroid (Chronic) Tinnitus (Chronic 10/07/15) Sensorineural hearing loss, unilateral (Chronic 10/07/15) 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) Plantar wart of both feet (Chronic 08/24/17) Osteoporosis (Chronic) Mass of uterus determined by ultrasound (Chronic 12/04/16) 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 Sister , AGE 56 Enlarged heart Sister No problems noted. Son No problems noted. Son No problems noted. Daughter No problems noted. Daughter No problems noted. Sister No problems noted. Maternal Grandfather , age 81 No problems noted. Social History Smoking/Tobacco Use Status: Never Second Hand Exposure: Yes Smoking risk assessment performed?: Yes Alcohol Intake: never Drug use: Never Substance use type: does not use Counseling given: No Counseling provided: none Caregiver/Support person: No Household members: children Housing: house Communication Needs: Hard of Hearing Do you need help understanding health information?: Never Pets and animals: Yes Pets and animals: cat(s) and dog(s) Sexually active: No Do you think of yourself as: straight/heterosexual Current gender identity: female What is your relationship status?: How often do you talk on the phone with friends or family?: twice per week How often do you get together with friends or relatives?: once per week How often do you attend spiritism or mandaeism services?: decline to answer Do you belong to any clubs or organized social groups?: no Panel score (0-1 are the most socially isolated patients): 1 What type of physical activity do you participate in: walking Duration: 15-30 minutes/day Frequency: 1-2 times per week Sharee/Hindu: Adventism Special sharee needs: No Seatbelt use: always Helmet use: No Drive intox or ride w/intox pick up and delivery driver: No Do you feel safe at home: Yes Do you feel safe in your relationship?: Yes Exam Narrative Exam Narrative: Physical Examination General: alert, awake, cooperative, moderately uncomfortable HEENT: normocephalic, atraumatic; PERRL, EOM intact, conjunctiva normal; no nasal discharge; moist mucous membranes, oral and pharyngeal mucosa normal, tolerating secretions Neck: supple, trachea midline; full ROM Chest: normal to inspection Respiratory: normal respiratory effort, speaking in full sentences, clear to auscultation, no wheezing, rales or rhonchi Cardiac: regular rate, regular rhythm, S1S2 intact, no murmurs rubs or gallops GI: abdomen soft, subjectively tender in the right lower quadrant with some distention/fullness nonperitoneal Skin: Pale, dry Neuro: AAOx3, normal speech, moving all extremities Psych: Appropriate mood and affect Course Vital Signs Vital signs: Vital Signs Temperature 36.3 C L 04/13/22 00:18 Pulse 74 04/13/22 00:18 Respiratory Rate 18 04/13/22 00:18 Blood Pressure 186/69 H 04/13/22 00:18 Pulse Oximetry 99 04/13/22 00:18 Temperature 36.3 C L 04/13/22 00:18 Temperature Source Oral 04/13/22 00:18 Pulse 74 04/13/22 00:18 Respiratory Rate 18 04/13/22 00:18 Respiratory Effort Non-Labored 04/13/22 00:22 Blood Pressure 186/69 H 04/13/22 00:18 Blood Pressure Position Supine 04/13/22 00:18 Pulse Oximetry 99 04/13/22 00:18 Oxygen Delivery Method Room Air 04/13/22 00:18 Oxygen Flow Rate 0 04/13/22 00:18 Pain Level 8 04/13/22 00:18
[2022-04-13] MEDS: MORPHine 4 MG/ML SYR 2 MG IVP (00:58)
[2022-04-13] MEDS: Normal Saline 1,000 ML 1000 ML IV (00:59)
[2022-04-13] MEDS: Ondansetron 4 MG/2 ML VIAL IVP (00:59)
[2022-04-13 01:13] LABS: Abs Immature Grans 0.02 10^3/uL (0.0-0.06); Absolute Basophil Count 0.02 10^3/uL (0.0-0.2); Absolute Eosinophil Count 0.08 10^3/uL (0.0-0.7); Absolute Lymphocyte Count 1.24 10^3/uL (1.2-3.4); Absolute Monocyte Count 0.48 10^3/uL (0.1-0.8); Absolute Neutrophil Count 5.07 10^3/uL (1.2-6.7); Basophils % 0.3; Eosinophils % 1.2; HCT 35.1 % (36.0-46.0); HGB 11.4 g/dL (11.2-15.7); Immature Grans % 0.3; Lymphocytes % 17.9; MCH 28.4 pg (27.0-33.0); MCHC 32.5 % (32.0-36.0); MCV 87 fL (80-95); MPV 10.3 fL (8.0-11.0); Monocytes % 6.9; Neutrophils % 73.4; Platelet Count 160 10^3/uL (130-400); RBC 4.02 10^6/uL (3.93-5.22); RDW 12.6 % (11.7-14.6); RDW-SD 40.2 fL; WBC 6.91 10^3/uL (4.4-10.8)
[2022-04-13] MEDS: Breeza Beverage 473 ML BTL PO ×2 (01:21→01:22)
[2022-04-13 01:28] LABS: ALT 27 U/L (14-59); AST 26 U/L (15-37); Albumin 3.9 g/dL (3.4-5.0); Alkaline Phosphatase 86 U/L (46-116); Anion Gap 9.6 mmol/L (3-11); BUN 22 mg/dL (7-18); Bilirubin, Total 0.5 mg/dL (0.2-1.0); CO2 25.4 mmol/L (21.0-32.0); CREATININE 0.9 mg/dL (0.55-1.02); Calcium 9.1 mg/dL (8.5-10.1); Chloride 106 mmol/L (98-107); Glucose 123 mg/dL (74-106); Lipase 158 U/L (73-393); Potassium 3.8 mmol/L (3.5-5.1); Sodium 141 mmol/L (136-145); Total Protein 6.9 g/dL (6.4-8.2)
[2022-04-13 01:55] LABS: Bilirubin Negative (Negative); Blood Trace-intact (Negative); Clarity Clear (Clear); Glucose Negative (Negative); Ketones Trace mg/dL (Negative); Leukocyte Esterase Small (Negative); Nitrite Negative (Negative); Specific Gravity 1.025 (1.005-1.025); Urobilinogen 0.2 EU/dL (Up TO 0.2)
[2022-04-13 02:04] LABS: Bacteria Few HPF (Negative); C & S Indicated? No/Sq. Contamination; Casts 0-2 Hyaline LPF (Negative); Crystals Negative HPF (Negative); Epithelial Cells Moderate HPF (Negative); Mucus Negative (Negative); RBC 0-2 HPF (0-2)
[2022-04-13 03:13] VITALS: BP 138/53; PULSE 73; O2SAT 95
[2022-04-13 03:31] VITALS: BP 120/42; PULSE 62; O2SAT 94
[2022-04-13 04:01] VITALS: BP 121/50; PULSE 61; O2SAT 95
--- NOTE | 2022-04-13 04:53 | DI.VRAD_ITS ---
PROCEDURE INFORMATION: Exam: CT Abdomen And Pelvis Without Contrast Exam date and time: 04/13/2022 2:52 AM Age: 77 years old Clinical indication: Nausea and vomiting; Abdominal pain; Localized; Right lower quadrant (rlq); Prior surgery; Surgery date: 6+ months; Surgery type: Appendectomy, tubal ligation TECHNIQUE: Imaging protocol: Computed tomography of the abdomen and pelvis without contrast. Radiation optimization: All CT scans at this facility use at least one of these dose optimization techniques: automated exposure control; mA and/or kV adjustment per patient size (includes targeted exams where dose is matched to clinical indication); or iterative reconstruction. COMPARISON: US ABDOMEN PELVIS ULTRASOUND 11/30/2016 4:01 PM FINDINGS: Moderate cardiomegaly and minimal subsegmental atelectasis versus scarring Liver: Normal. No mass. Gallbladder and bile ducts: No calcified stones. No ductal dilation. Pancreas: Normal. No ductal dilation. Spleen: Normal. No splenomegaly. Adrenal glands: Normal. No mass. Kidneys and ureters: Faint right renal calculus in the lower pole. Mild prominence to the right extrarenal pelvis No hydronephrosis. Stomach and bowel: Unremarkable. No obstruction. No mucosal thickening. Appendix: Prior appendectomy. Intraperitoneal space: Unremarkable. No free air. No significant fluid collection. Vasculature: Unremarkable. No abdominal aortic aneurysm. Lymph nodes: Unremarkable. No enlarged lymph nodes. Urinary bladder: Unremarkable as visualized. Reproductive: Unremarkable as visualized. Bones/joints: Degenerative changes in the spine. No acute fracture. Soft tissues: Unremarkable. IMPRESSION: Faint right renal calculus in the lower pole. Mild prominence to the extrarenal right pelvis. No significant ureteral dilatation Recently passed stone cannot be completely excluded Dictated and Authenticated by: Thomas Shepherd MD. Ordering:RANJIT Perry MD
[2022-04-13 05:12] VITALS: BP 120/46; PULSE 66; RESP 12; TEMP 36.6; O2SAT 98
== END 2022-04-13 05:17 | disposition home or self-care (01) ==
PROVIDERS: Emergency Provider Emergency Medicine
DX: N20.0 Calculus of kidney (principal)
CPT/HCPCS: 80053; 83690; 96361; 96374; 96375; 99284; 74176; 81003; 81015; 85025; J2270; J2405; J3490

== ENCOUNTER 2022-06-01 03:58 | Outpatient (CLI) | payer MEDICARE, SELFPAY ==
[2022-06-01 12:44] LABS: ALT 25 U/L (14-59); AST 22 U/L (15-37); Albumin 3.5 g/dL (3.4-5.0); Alkaline Phosphatase 67 U/L (46-116); Anion Gap 7.9 mmol/L (3-11); BUN 22 mg/dL (7-18); Bilirubin, Total 0.4 mg/dL (0.2-1.0); CO2 26.1 mmol/L (21.0-32.0); CREATININE 0.9 mg/dL (0.55-1.02); Calcium 9.1 mg/dL (8.5-10.1); Calculated LDL 83 mg/dL (<100); Chloride 105 mmol/L (98-107); Cholesterol 162 mg/dL (<200); Glucose 83 mg/dL (74-106); HDL Cholesterol 68 mg/dL (40-60); Potassium 4.3 mmol/L (3.5-5.1); Sodium 139 mmol/L (136-145); Total Protein 6.8 g/dL (6.4-8.2); Triglyceride 59 mg/dL (<150)
== END 2022-06-01 03:59 | disposition home or self-care (01) ==
LOC: LOS 03:58
DX: E78.5 Hyperlipidemia, unspecified (principal); I10 Essential (primary) hypertension; F41.8 Other specified anxiety disorders; M81.0 Age-related osteoporosis without current pathological fracture
CPT/HCPCS: 36415; 80053; 80061

== ENCOUNTER 2023-03-11 01:17 | Outpatient (CLI) | payer MEDICARE, SELFPAY ==
--- NOTE | 2023-03-11 09:06 | DI.MAMMO_ITS ---
Exam(s) MAMMO SCREENING EXAM: MAMMO SCREENING CLINICAL HISTORY: screening,z12.39 TECHNIQUE: Bilateral full field digital CC and MLO mammographic images were obtained with 3D tomosyn thesis and utilizing computer aided detection (CAD). COMPARISON: Available for comparison. FINDINGS: Masses/Architectural Distortion: None seen. Microcalcifications: No suspicious pleomorphic-type are seen. Skin Thickening/Nipple Retraction: None. IMPRESSION: 1. No significant interval change with no specific features of malignancy noted. 2. Unless there is more urgent need, screening mammography is recommended, as per [employer] guidelines. BI-RADS Category 1 - Negative Breast Density - Category C - Heterogeneously dense Breast density category C or D implies that the patient has dense breast tissue. Dense breast tissue is very common and is not abnormal but dense breast tissue can make it harder to find cancer on a ma mmogram. Also, dense breast tissue may increase their breast cancer risk. This information about the result of the mammogram report was provided to the patient to raise their awareness. Use this report when you speak with the patient about their risks for breast cancer, which includes their family hist ory. At that time, you may recommend for more screening tests (Ultrasound or MRI) as they might be us eful based on their risk. A negative radiographic report should not delay biopsy if a dominant or clinically suspicious mass is present. Up to ten percent of cancers are not identified on mammography. A negative report may reinforce clinical impression. Adenosis and dense breasts may obscure an underlying neoplasm. False positive reports average 6 to 10%. Patient will receive a letter notifying them of these results.
== END 2023-03-11 01:37 ==
PROVIDERS: PCP Nurse Practitioner Family; Visit Provider Nurse Practitioner Family
DX: Z12.31 Encounter for screening mammogram for malignant neoplasm of breast (principal)
CPT/HCPCS: 77063; 77067

== ENCOUNTER 2023-04-21 19:25 | Emergency (ER) | payer MEDICARE, SELFPAY ==
[2023-04-21 19:28] VITALS: BP 178/77; PULSE 58; RESP 24; TEMP 36.3; O2SAT 100
--- NOTE | 2023-04-21 19:45 | DI.CT_ITS ---
Exam(s) CT RENAL COLIC WO EXAM: CT RENAL COLIC WO CLINICAL HISTORY: R flank pain. TECHNIQUE: Imaging Protocol: Axial computed tomography images with coronal and sagittal reformatted images were created and reviewed. CONTRAST MATERIAL: Noncontrast COMPARISON: CT CT ABDOMEN PELVIS WO from 04/13/2022 FINDINGS: ABDOMEN: Lung Bases: Heart is enlarged. Small hiatal hernia. Liver: Normal attenuation. No measurable mass. Gallbladder and biliary tract: No radiodense calculus or dilation. Pancreas: Normal density, no calcifications or inflammatory process. Spleen: Normal. Kidneys: Normal size, contour and axis. 1 millimeters stone seen at lower pole of right kidney. No h ydronephrosis. No masses seen. Adrenal glands: No masses seen. Abdominal Aorta: Abdominal portion non-dilated. Atherosclerotic changes. Soft tissues: Small fat containing umbilical hernia. There is a right inguinal hernia containing a s mall loop of distal ileum which does not appear obstructed. This is new since the prior exam. Promi nent vein in the right groin. PELVIS: Bladder: Symmetric distention, no gross wall thickening. No evidence of stones.No visible mass. Bowel: Evaluation of bowel limited without IV an oral contrast. No obstruction or bowel wall thicken ing. Suture material at cecum as well as right lower quadrant surgical clips consistent with prior appendectomy. Increased stool seen in ascending colon. Remainder of colon unremarkable. Reproductive: Unremarkable. Peritoneal cavity: No ascites, collection or mesenteric inflammatory response. Bones: Unremarkable for age.. IMPRESSION: Tiny nonobstructing stone lower pole right kidney. No hydronephrosis. Right inguinal hernia containing a nonobstructed loop of distal ileum. RADIATION DOSE DELIVERED: 526.56mGy.cm Total DLP DATA REPOSITORY: All CT scans at this facility are submitted to the National Radiology Data Registry (NRDR) Dose Index Registry (DIR) with the [employer] (ACR). RADIATION OPTIMIZATION: All CT scans at this facility use at least one of these dose optimization te chniques: automated exposure control; mA and/or kV adjustment per patient size (includes targeted exa ms where dose is matched to clinical indication); or iterative reconstruction.
--- NOTE | 2023-04-21 19:45 | W.ED.GENAD ---
Discharge Plan Disposition Patient Disposition: Home Discharge Details Clinical Impression: Enterocolitis, Acute UTI (urinary tract infection) Primary Care Provider: Camilo Singh ED Provider: Eddy Milian Meds and New Rx's Prescriptions: New ciprofloxacin HCl 250 mg tablet 250 mg PO BID Qty: 14 0RF Continued lisinopril 2.5 mg tablet 2.5 mg PO DAILY Qty: 90 3RF triamcinolone acetonide 0.1 % cream 1 applic topical BID Qty: 30 4RF hydroxyzine HCl 25 mg tablet 25 mg PO Q8H PRN (Reason: itching) Qty: 60 0RF aspirin [Aspir-81] 81 MG tablet,delayed release (DR/EC) 1 tab PO DAILY cholecalciferol (vitamin D3) [Vitamin D3] 1,000 UNIT capsule 1 cap PO DAILY magnesium oxide 400 MG capsule 1 cap PO DAILY garlic 1 EACH tablet 1 ea PO DAILY atorvastatin 20 mg tablet 20 mg PO DAILY Qty: 90 3RF metoprolol succinate 25 mg tablet extended release 24 hr 25 mg PO DAILY Qty: 90 3RF Discharge Instructions Instructions: Urinary Tract Infection in Women (ED), Colitis (ED) Referrals: Camilo Snigh, INTERACTIVE MEDIA SPECIALIST [Primary Care Provider] - 2 days Discharge Data Discharge Physician: Eddy Milian Medical Decision Making Patient presents to the emergency department complaining of right flank right lower quadrant and mid epigastric pain associate with nausea. Concerning for a kidney stone patient was given IV fluids Zofran and Toradol and morphine and the patient's pain completely subsided. She had labs and a urinalysis urinalysis does not show hematuria but does show some pyuria 5-10 white blood cells. CAT scan of the abdomen pelvis does not show any visible kidney stones but does show some dilated loops of small bowel but no small bowel obstruction the radiologist says this is might be enterocolitis. Differential Diagnosis Differential Diagnosis: 1. Renal colic 2. Appendicitis 3. AAA Medical Records Medical records reviewed: Yes I reviewed the patient's medical records. Imaging Data Radiologic Study: Imaging: CT Scan Radiologist's impression: Impression: There are diffuse fluid-filled loops of small bowel and colon with scattered air-fluid levels there is mild bowel wall thickening or inflammatory changes findings were consistent with diffuse enterocolitis as per the radiologist Lab Data Lab results reviewed: Yes I reviewed the patient's lab results. HPI General Date/Time Provider Initiated Documentation: 04/21/23 19:45. HPI Narrative: Patient presents to the emergency department complaining of sudden onset about 4 hours ago crampy flank and right lower quadrant abdominal pain. She states that she thought she wanted to have a bowel movement had some mild diarrhea but the pain continued and she reports it is 6/10 cramping pain in the midepigastric right flank and right lower quadrant area. She reports she had an episode of nausea no vomiting. Denies any fever denies any chills denies any dysuria denies any hematuria. Related Data Home Medications Medication Instructions Recorded Confirmed aspirin 81 mg tablet,delayed 1 tab PO DAILY 01/26/18 03/06/23 release (Aspir-) cholecalciferol (vitamin D3) 25 1 cap PO DAILY 02/16/18 03/06/23 mcg (1,000 unit) capsule (Vitamin D3) magnesium oxide 1 cap PO DAILY 02/16/18 03/06/23 garlic 1 ea PO DAILY 04/25/18 03/06/23 lisinopril 2.5 mg tablet 2.5 mg PO DAILY #90 tab-caps 08/05/22 03/06/23 atorvastatin 20 mg tablet 20 mg PO DAILY #90 tabs 09/29/22 03/06/23 metoprolol succinate 25 mg 25 mg PO DAILY #90 tabs 09/29/22 03/06/23 tablet,extended release 24 hr triamcinolone acetonide 0.1 % 1 applic topical BID #30 grams 10/12/22 03/06/23 topical cream hydroxyzine HCl 25 mg tablet 25 mg PO Q8H PRN itching #60 tabs 10/14/22 03/06/23 ciprofloxacin HCl 250 mg tablet 250 mg PO BID #14 tabs 04/21/23 Previous Rx's Medication Instructions Recorded lisinopril 2.5 mg tablet 2.5 mg PO DAILY #90 tab-caps 08/05/22 atorvastatin 20 mg tablet 20 mg PO DAILY #90 tabs 09/29/22 metoprolol succinate 25 mg 25 mg PO DAILY #90 tabs 09/29/22 tablet,extended release 24 hr triamcinolone acetonide 0.1 % 1 applic topical BID #30 grams 10/12/22 topical cream hydroxyzine HCl 25 mg tablet 25 mg PO Q8H PRN itching #60 tabs 10/14/22 ciprofloxacin HCl 250 mg tablet 250 mg PO BID #14 tabs 04/21/23 Allergies Allergy/AdvReac Type Severity Reaction Status Date / Time amoxicillin [From Augmentin] AdvReac Intermediate Diarrhea Verified 03/06/23 09:04 clavulanic acid AdvReac Intermediate Diarrhea Verified 03/06/23 09:04 [From Augmentin] General Stated Complaint: FlankPain CARISSA: 3 Review of Systems All systems reviewed & are unremarkable except as noted in HPI and below Constitutional Constitutional: Reports as per HPI Eyes Eyes: Reports as per HPI and Reports system reviewed and no additional complaints, except as documented ENT Ears, Nose, Mouth, and Throat: Reports system reviewed and no additional complaints, except as documented and Reports as per HPI Cardiovascular Cardiovascular: Reports as per HPI and Reports system reviewed and no additional complaints, except as documented Respiratory Respiratory: Reports as per HPI and Reports system reviewed and no additional complaints, except as documented Gastrointestinal Gastrointestinal: Reports as per HPI and Reports system reviewed and no additional complaints, except as documented Genitourinary Genitourinary: Reports system reviewed and no additional complaints, except as documented Musculoskeletal Musculoskeletal: Reports system reviewed and no additional complaints, except as documented Neurologic Neurologic: Reports system reviewed and no additional complaints, except as documented Psychiatric Psychiatric: Reports system reviewed and no additional complaints, except as documented Endocrine Endocrine: Reports system reviewed and no additional complaints, except as documented PFSH All Active Problems (Updated 04/21/23 @ 22:10 by Eddy Milian MD) Anxiety (Chronic 01/26/18) Elevated LDL cholesterol level (Chronic) Endometrial thickening on ultrasound (Chronic 12/08/16) Essential hypertension (Chronic 01/26/18) 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) Mass of uterus determined by ultrasound (Chronic 12/04/16) Osteoporosis (Chronic) Plantar wart of both feet (Chronic 08/24/17) 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) Sensorineural hearing loss, unilateral (Chronic 10/07/15) Tinnitus (Chronic 10/07/15) Uterine fibroid (Chronic) Venous insufficiency (Chronic 07/23/16) Allergic rhinitis (Acute) Hyperlipidemia (Acute) Advanced directives, counseling/discussion (Acute) Enterocolitis (Acute) Acute UTI (urinary tract infection) (Acute) Medical History Abnormal auditory perception (10/07/15) Herpes zoster Venous insufficiency Surgical History Appendectomy (~07/2009) Colonoscopy - MAC (02/01/17) Hx of cataract surgery Ligation of fallopian tube (~1979) Family History Sister Breast cancer Mother , AGE 82 Alzheimer's dementia Father , AGE 89 No problems noted. Sister , AGE 56 Enlarged heart Sister No problems noted. Son No problems noted. Son No problems noted. Daughter No problems noted. Daughter No problems noted. Sister No problems noted. Maternal Grandfather , age 81 No problems noted. Social History Smoking/Tobacco Use Status: Never Second Hand Exposure: Yes Smoking risk assessment performed?: Yes Alcohol Intake: never Drug use: Never Substance use type: does not use Counseling given: No Counseling provided: none Caregiver/Support person: No Household members: children Housing: house Communication Needs: Hard of Hearing Do you need help understanding health information?: Never Pets and animals: Yes Pets and animals: cat(s) and dog(s) Sexually active: No Do you think of yourself as: straight/heterosexual Current gender identity: female What is your relationship status?: How often do you talk on the phone with friends or family?: three or more times per week How often do you get together with friends or relatives?: twice per week How often do you attend orthodoxy or christian services?: decline to answer Do you belong to any clubs or organized social groups?: no Panel score (0-1 are the most socially isolated patients): 1 What type of physical activity do you participate in: walking Duration: 15-30 minutes/day Frequency: 1-2 times per week Sharee/Mormonism: Oriental Orthodox Special sharee needs: No Seatbelt use: always Helmet use: No Drive intox 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 Do you feel safe at home: Yes Do you feel safe in your relationship?: Yes Exam Narrative Exam Narrative: Exam; vitals signs as reported above Constitutional; In no acute distress, afebrile General: cooperative, healthy appearing, comfortable and no acute distress HEENT: Head: normal to inspection, no palpable skull fracture and normocephalic Eyes: l: appearance normal, both eyes and all related structures ]Pupils: PERRL EOM: EOM intact bilaterally Direct ophthalmoscopy: normal light reflex, normal conjunctiva, normal visual acuity Neck no JVD, supple Neck: normal visual inspection, full ROM and no lymphadenopathy Chest Chest: normal inspection of the chest Respiratory : normal respiratory effort and able to speak in complete sentences Cardio Rate: regular rate Rhythm: regular rhythm normal heart sounds S1 and S2 no murmurs, gallops, or rubs GI Inspection: normal to inspection, normal bowel sounds, soft, non tender, non distended, no organomegally hypoactive bowel sounds Back/Spine/ no CVA tenderness Thoracic/Lumbar Spine: no tenderness or deformities Skin no rashes or lesions Neuro: patient alert and no meningeal signs, Cranial Nerves: CN's II-XI intact bilaterally, Cognition: normal cognition, Speech: speech normal, Gait: normal gait, Depp tendon reflexes normal 2+ Extremities, no edema, full range of motion, normal strength Course Reevaluation(s) Time: 22:03 Reevaluation: Feels much better states the pain is subsided denies any nausea denies any pain Vital Signs Vital signs: Vital Signs Temperature 36.3 C L 04/21/23 19:28 Pulse 58 L 04/21/23 19:28 Respiratory Rate 24 04/21/23 19:28 Blood Pressure 178/77 H 04/21/23 19:28 Pulse Oximetry 100 04/21/23 19:28 Temperature 36.3 C L 04/21/23 19:28 Temperature Source Temporal Artery Scan 04/21/23 19:28 Pulse 58 L 04/21/23 19:28 Respiratory Rate 24 04/21/23 19:28 Blood Pressure 178/77 H 04/21/23 19:28 Blood Pressure Position Sitting 04/21/23 19:28 Pulse Oximetry 100 04/21/23 19:28 Oxygen Delivery Method Room Air 04/21/23 19:28 Oxygen Flow Rate 0 04/21/23 19:28 End Tidal Co2 10 04/21/23 19:28 Vital Signs and Lab Results Vital Signs Most Recent Vital Signs in EMR: Most Recent Vital Signs Temp Pulse Resp BP Pulse Ox 36.3 C L 58 L 24 178/77 H 100 04/21/23 19:28 04/21/23 19:28 04/21/23 19:28 04/21/23 19:28 04/21/23 19:28 Lab Results 04/21/23 19:52 04/21/23 19:52 Blood Type / Crossmatch: No Data to Display Complete Blood Count: White Blood Count 4.81 10^3/uL (4.4-10.8) 04/21/23 19:52 Red Blood Count 4.14 10^6/uL (3.93-5.22) 04/21/23 19:52 Hemoglobin 11.3 g/dL (11.2-15.7) 04/21/23 19:52 Hematocrit 35.9 % (36.0-46.0) L 04/21/23 19:52 Platelet Count 166 10^3/uL (130-400) 04/21/23 19:52 Complete Metabolic Panel: Sodium 139 mmol/L (136-145) 04/21/23 19:52 Potassium 4.0 mmol/L (3.5-5.1) 04/21/23 19:52 Chloride 105 mmol/L (98-107) 04/21/23 19:52 Carbon Dioxide 25.8 mmol/L (21.0-32.0) 04/21/23 19:52 BUN 25 mg/dL (7-18) H 04/21/23 19:52 Creatinine 0.9 mg/dL (0.55-1.02) 04/21/23 19:52 Est GFR (CKD-EPI 2020) 64.63 (mL/min/1.73m2) 04/21/23 19:52 Calcium 8.9 mg/dL (8.5-10.1) 04/21/23 19:52 Albumin 3.9 g/dL (3.4-5.0) 04/21/23 19:52 Glucose 121 mg/dL (74-106) H 04/21/23 19:52 Liver Function Panel: Alanine Aminotransferase (ALT/SGPT) 19 U/L (14-59) 04/21/23 19:52 Aspartate Amino Transf (AST/SGOT) 18 U/L (15-37) 04/21/23 19:52 Coagulation Panel: No Data to Display Cardiac Panel: No Data to Display Arterial Blood Gas: No Data to Display Venous Blood Gas: No Data to Display Pancreas Panel: No Data to Display Thyroid Panel: No Data to Display Infectious Disease: No Data to Display Blood Cultures: No Data to Display Toxicology Panel: No Data to Display
[2023-04-21 20:01] LABS: Abs Immature Grans 0.01 10^3/uL (0.0-0.06); Absolute Basophil Count 0.02 10^3/uL (0.0-0.2); Absolute Eosinophil Count 0.29 10^3/uL (0.0-0.7); Absolute Lymphocyte Count 1.94 10^3/uL (1.2-3.4); Absolute Monocyte Count 0.45 10^3/uL (0.1-0.8); Basophils % 0.4; HCT 35.9 % (36.0-46.0); HGB 11.3 g/dL (11.2-15.7); Immature Grans % 0.2; Lymphocytes % 40.3; MCH 27.3 pg (27.0-33.0); MCHC 31.5 % (32.0-36.0); MCV 87 fL (80-95); Monocytes % 9.4; Neutrophils % 43.7; Platelet Count 166 10^3/uL (130-400); RBC 4.14 10^6/uL (3.93-5.22); RDW 13.2 % (11.7-14.6); RDW-SD 41.1 fL; WBC 4.81 10^3/uL (4.4-10.8)
[2023-04-21] MEDS: Ondansetron 4 MG/2 ML VIAL IVP (20:06)
[2023-04-21] MEDS: MORPHine 10 MG/ML VIAL 5 MG IVP (20:07)
[2023-04-21] MEDS: Normal Saline 1,000 ML 1000 ML IV (20:08)
[2023-04-21] MEDS: Ketorolac 30 MG/ML VIAL IVP (20:08)
[2023-04-21 20:15] LABS: ALT 19 U/L (14-59); AST 18 U/L (15-37); Albumin 3.9 g/dL (3.4-5.0); Alkaline Phosphatase 71 U/L (46-116); Anion Gap 8.2 mmol/L (3-11); BUN 25 mg/dL (7-18); Bilirubin, Total 0.5 mg/dL (0.2-1.0); CO2 25.8 mmol/L (21.0-32.0); CREATININE 0.9 mg/dL (0.55-1.02); Calcium 8.9 mg/dL (8.5-10.1); Chloride 105 mmol/L (98-107); Estimated GFR 64.63 (mL/min/1.73m2); Glucose 121 mg/dL (74-106); Sodium 139 mmol/L (136-145); Total Protein 7.1 g/dL (6.4-8.2)
--- NOTE | 2023-04-21 20:38 | DI.VRAD_ITS ---
PROCEDURE INFORMATION: Exam: CT Abdomen And Pelvis Without Contrast Exam date and time: 04/21/2023 7:55 PM Age: 78 years old Clinical indication: Other: Right flank plain TECHNIQUE: Imaging protocol: Computed tomography of the abdomen and pelvis without contrast. Radiation optimization: All CT scans at this facility use at least one of these dose optimization techniques: automated exposure control; mA and/or kV adjustment per patient size (includes targeted exams where dose is matched to clinical indication); or iterative reconstruction. COMPARISON: CT ABDOMEN PELVIS WO 04/13/2022 2:52 AM FINDINGS: Lungs: There is mild heterogeneous attenuation of the pulmonary parenchyma, consistent with mild air trapping from underlying small airways disease. Mild scarring at the lung bases bilaterally. Pleural spaces: There is no evidence of pneumothorax. There are no pleural effusions present. Heart: Low attenuation within the cardiac ventricular chambers may represent anemia. The cardiac structures are normal. Coronary arteries: No evidence of significant coronary artery atherosclerotic plaque or calcification. Liver: There are no focal liver lesions present. There is no evidence of intrahepatic or extrahepatic biliary ductal dilation. The liver is enlarged measuring 17 cm. Gallbladder and bile ducts: The gallbladder is normal. There is no cholelitiasis, wall thickening or pericholecystic fluid to suggest cholecystitis. Pancreas: The pancreas is normal. Spleen: The spleen is normal. Adrenal glands: The adrenal glands are normal. Kidneys and ureters: 1 mm calculus present in the lower pole right kidney without evidence of obstruction. The kidneys are otherwise normal. Stomach and bowel: There is mild increased colonic fecal content. The colon is nondilated. These findings suggest a mild degree of constipation. Clinical correlation recommended. There are diffuse fluid filled loops of small bowel and colon with scattered air fluid levels. The bowel loops are mildly distended. There is mild bowel wall thickening or inflammatory changes. No evidence of obstruction. Findings most consistent with diffuse enterocolitis. Appendix: Surgical clips right lower quadrant consistent with prior appendectomy. Intraperitoneal space: Unremarkable. No free air. No significant fluid collection. Vasculature: The aorta demonstrates moderate atherosclerotic calcification. The arterial peripheral vasculature demonstrates diffuse mild atherosclerotic calcification. Lymph nodes: Unremarkable. No enlarged lymph nodes. Urinary bladder: The bladder is normal. Reproductive: Mild calcification of the uterus, consistent with uterine fibroids. Uterus otherwise normal. Bones/joints: The lumbar spine demonstrates moderate degenerative changes. Soft tissues: There are nonobstructing bilateral inguinal hernias containing fat and possibly a small amount of mesentery. The right inguinal canal also contains bowel. No evidence of incarceration or obstruction. The extra-abdominal soft tissues are normal. There is a fat-containing umbilical hernia. IMPRESSION: 1. There are diffuse fluid filled loops of small bowel and colon with scattered air fluid levels. The bowel loops are mildly distended. There is mild bowel wall thickening or inflammatory changes. No evidence of obstruction. Findings most consistent with diffuse enterocolitis. 2. There is mild heterogeneous attenuation of the pulmonary parenchyma, consistent with mild air trapping from underlying small airways disease. 3. Hepatomegaly 4. Probable anemia. Dictated and Authenticated by: Mike Carrillo MD. Ordering:ANDREA Kam MD
[2023-04-21 21:17] LABS: Bilirubin Negative (Negative); Blood Trace-lysed (Negative); Clarity Clear (Clear); Glucose Negative (Negative); Ketones Negative (Negative); Leukocyte Esterase Small (Negative); Nitrite Negative (Negative); Specific Gravity 1.025 (1.005-1.025); Urobilinogen 0.2 mg/dL (Up to 0.2)
[2023-04-21 21:22] LABS: Bacteria Few HPF (Negative); C & S Indicated? Yes; Casts Negative LPF (Negative); Crystals Negative HPF (Negative); Epithelial Cells Few HPF (Negative); Mucus Negative (Negative); RBC 0-2 HPF (0-2)
[2023-04-21] MEDS: Ciprofloxacin 250 MG TAB PO ×2 (22:29→22:41)
[2023-04-21 22:38] VITALS: BP 126/63; PULSE 65; TEMP 36.2; O2SAT 92
== END 2023-04-21 22:41 | disposition home or self-care (01) ==
PROVIDERS: Emergency Provider Emergency Medicine Emergency Medical Services; PCP Nurse Practitioner Family
DX: K52.9 Noninfective gastroenteritis and colitis, unspecified (principal); N39.0 Urinary tract infection, site not specified
CPT/HCPCS: 80053; 96361; 96374; 96375; 99284; 74176; 81003; 81015; 85025; 87086; J1885; J2270; J2405

== ENCOUNTER 2023-07-21 02:51 | Outpatient (CLI) | payer MEDICARE, SELFPAY ==
[2023-07-21 11:15] LABS: ALT 25 U/L (14-59); AST 22 U/L (15-37); Alkaline Phosphatase 64 U/L (46-116); Anion Gap 8.5 mmol/L (3-11); BUN 23 mg/dL (7-18); Bilirubin, Total 0.7 mg/dL (0.2-1.0); CO2 26.5 mmol/L (21.0-32.0); Calcium 9.8 mg/dL (8.5-10.1); Calculated LDL 78 mg/dL (<100); Chloride 103 mmol/L (98-107); Cholesterol 168 mg/dL (<200); Estimated GFR 56.95 (mL/min/1.73m2); Glucose 89 mg/dL (74-106); HDL Cholesterol 81 mg/dL (40-60); Potassium 4.6 mmol/L (3.5-5.1); Sodium 138 mmol/L (136-145); Total Protein 7.2 g/dL (6.4-8.2); Triglyceride 45 mg/dL (<150)
== END 2023-07-21 02:52 | disposition home or self-care (01) ==
LOC: LBO 02:51
PROVIDERS: PCP Nurse Practitioner Family; Visit Provider Nurse Practitioner Family
DX: E78.5 Hyperlipidemia, unspecified (principal); I10 Essential (primary) hypertension
CPT/HCPCS: 36415; 80053; 80061

== ENCOUNTER 2023-07-23 11:58 | Emergency (ER) | payer MEDICARE, SELFPAY ==
[2023-07-23] VITALS (7 sets, daily range): BP systolic 136–171; BP diastolic 53–66; PULSE 49–61; RESP 17–22; TEMP 36.2–36.8; O2SAT 99–100
--- NOTE | 2023-07-23 12:30 | DI.CT_ITS ---
Exam(s) CT HEAD WO EXAM: CT HEAD WO CLINICAL HISTORY: Head Injury. TECHNIQUE: Imaging Protocol: Axial computed tomography images with coronal and sagittal reformatted images were created and reviewed COMPARISON: CT HEAD WITH/WITHOUT CONTRAST from 11/26/2016 FINDINGS: Ventricles and Extra axial spaces: Normal in size and morphology for the patient's age. Hemorrhage: None. Cerebral parenchyma: There are areas of decreased attenuation in the white matter consistent with sma ll vessel ischemic disease. No mass effect is identified. Midline shift: None. Brainstem/Cerebellum: Normal. Calvarium: Normal. Visualized Paranasal sinuses/Mastoids: Clear. Soft Tissues: Unremarkable. IMPRESSION: 1. No acute intracranial process. 2. Findings were discussed with the emergency department at 1:59 p.m. on 07/23/2023. RADIATION DOSE DELIVERED: 670.65mGy.cm Total DLP DATA REPOSITORY: All CT scans at this facility are submitted to the National Radiology Data Registry (NRDR) Dose Index Registry (DIR) with the [employer] (ACR). RADIATION OPTIMIZATION: All CT scans at this facility use at least one of these dose optimization te chniques: automated exposure control; mA and/or kV adjustment per patient size (includes targeted exa ms where dose is matched to clinical indication); or iterative reconstruction.
--- NOTE | 2023-07-23 12:41 | W.ED.GENAD ---
Discharge Plan Disposition Patient Disposition: Home Condition: Stable Discharge Details Clinical Impression: CHI (closed head injury), Sensorineural hearing loss, unilateral Primary Care Provider: Camilo Singh ED Provider: Tonya Meier Home Meds and New Rx's Prescriptions: Continued lisinopril 2.5 mg tablet 2.5 mg PO DAILY Qty: 90 3RF hydroxyzine HCl 25 mg tablet 25 mg PO Q8H PRN (Reason: itching) Qty: 60 0RF Patient Comments: Pt states no longer taking - ML 07/22/23 aspirin [Aspir-81] 81 MG tablet,delayed release (DR/EC) 1 tab PO DAILY cholecalciferol (vitamin D3) [Vitamin D3] 1,000 UNIT capsule 1 cap PO DAILY magnesium oxide 400 MG capsule 1 cap PO DAILY garlic 1 EACH tablet 1 ea PO DAILY atorvastatin 20 mg tablet 20 mg PO DAILY Qty: 90 3RF metoprolol succinate 25 mg tablet extended release 24 hr 25 mg PO DAILY Qty: 90 3RF cyanocobalamin (vitamin B-12) [Vitamin B-12] 1,000 mcg Tablet 1,000 mcg PO DAILY triamcinolone acetonide [Triderm] 0.1 % cream 1 applic topical BID Discharge Instructions Instructions: Head Injury (ED) Additional Instructions: CT of Head shows nothing acute or new. Please follow up with agricultural specialist. Also follow up with your PCP. Follow up with primary care provider in 3-5 days. Return to ED sooner if any worsening or concerns. Increase oral fluids. Referrals: Camilo Singh, ALLERGIST/PEDIATRIC PULMONOLOGIST [Primary Care Provider] - 5 days Rahul White MD [ [facility] STAFF PHYSICIAN] - 3 days Discharge Data Discharge Date/Time-TO BE ENTERED AT DEPARTURE: 07/23/23 14:24 Medical Decision Making 78 year old female presents with right sided hearing loss after getting hit on the top of the head by a falling wooden board at 0630 this am. She denies LOC, but reports decreased hearing to right ear. Denies neck pain, SORIANO, diplopia or blurry vision. No other associated signs or symptoms. Past medical history includes anxiety hypertension, high cholesterol, osteoporosis, and venous insufficiency, hyperlipidemia, sensorineural neural hearing loss unilateral and venous insufficiency. She takes aspirin daily. Head CT ordered. PMHX does include unilateral hearing loss since 2014. Patient presents with the son who states she has had a change since the injury this am. CT WNL, will discharge to home with instructions to follow up with ENT. This text was generated using [employer] system, please disregard any oddities of phrase or misspellings. Imaging Data Radiologic Study: Imaging: CT Scan Radiologist's impression: EXAM: CT HEAD WO CLINICAL HISTORY: Head Injury. TECHNIQUE: Imaging Protocol: Axial computed tomography images with coronal and sagittal reformatted images were created and reviewed COMPARISON: CT HEAD WITH/WITHOUT CONTRAST from 11/26/2016 FINDINGS: Ventricles and Extra axial spaces: Normal in size and morphology for the patient's age. Hemorrhage: None. Cerebral parenchyma: There are areas of decreased attenuation in the white matter consistent with small vessel ischemic disease. No mass effect is identified. Midline shift: None. Brainstem/Cerebellum: Normal. Calvarium: Normal. Visualized Paranasal sinuses/Mastoids: Clear. Soft Tissues: Unremarkable. IMPRESSION: 1. No acute intracranial process. 2. Findings were discussed with the emergency department at 1:59 p.m. on 07/23/2023. HPI General Mode of arrival: wheelchair. Date/Time Provider Initiated Documentation: 07/23/23 12:31. Limitations to Documentation: no limitations. Information obtained by: patient, RN notes reviewed and old records reviewed. HPI Narrative: 78 year old female presents with right sided hearing loss after getting hit on the top of the head by a falling wooden board at 0630 this am. She denies LOC, but reports decreased hearing to right ear. Denies neck pain, SORIANO, diplopia or blurry vision. No other associated signs or symptoms. Past medical history includes anxiety hypertension, high cholesterol, osteoporosis, and venous insufficiency, hyperlipidemia, sensorineural neural hearing loss unilateral and venous insufficiency. She takes aspirin daily. Related Data Home Medications Medication Instructions Recorded Confirmed aspirin 81 mg tablet,delayed 1 tab PO DAILY 01/26/18 07/23/23 release (Aspir-) cholecalciferol (vitamin D3) 25 1 cap PO DAILY 02/16/18 07/23/23 mcg (1,000 unit) capsule (Vitamin D3) magnesium oxide 1 cap PO DAILY 02/16/18 07/23/23 garlic 1 ea PO DAILY 04/25/18 07/23/23 lisinopril 2.5 mg tablet 2.5 mg PO DAILY #90 tab-caps 08/05/22 07/23/23 atorvastatin 20 mg tablet 20 mg PO DAILY #90 tabs 09/29/22 07/23/23 metoprolol succinate 25 mg 25 mg PO DAILY #90 tabs 09/29/22 07/23/23 tablet,extended release 24 hr hydroxyzine HCl 25 mg tablet 25 mg PO Q8H PRN itching #60 tabs 10/14/22 06/09/23 cyanocobalamin (vitamin B-12) 1,000 mcg PO DAILY 07/23/23 07/23/23 1,000 mcg tablet (Vitamin B-12) triamcinolone acetonide 0.1 % 1 applic topical BID 07/23/23 07/23/23 topical cream (Triderm) Previous Rx's Medication Instructions Recorded lisinopril 2.5 mg tablet 2.5 mg PO DAILY #90 tab-caps 08/05/22 atorvastatin 20 mg tablet 20 mg PO DAILY #90 tabs 09/29/22 metoprolol succinate 25 mg 25 mg PO DAILY #90 tabs 09/29/22 tablet,extended release 24 hr hydroxyzine HCl 25 mg tablet 25 mg PO Q8H PRN itching #60 tabs 10/14/22 Allergies Allergy/AdvReac Type Severity Reaction Status Date / Time amoxicillin [From Augmentin] AdvReac Intermediate Diarrhea Verified 07/23/23 12:41 clavulanic acid AdvReac Intermediate Diarrhea Verified 07/23/23 12:41 [From Augmentin] General Stated Complaint: HeadInjury CARISSA: 3 Review of Systems All systems reviewed & are unremarkable except as noted in HPI and below ENT Ears, Nose, Mouth, and Throat: Reports as per HPI and Reports hearing loss Cardiovascular Cardiovascular: Denies chest pain and Denies dyspnea Respiratory Respiratory: Denies dyspnea PFSH All Active Problems (Updated 07/23/23 @ 14:03 by Tonya Meier NP) CHI (closed head injury) (Acute) COVID-19 virus infection (Acute) Anxiety (Chronic 01/26/18) Elevated LDL cholesterol level (Chronic) Endometrial thickening on ultrasound (Chronic 12/08/16) Essential hypertension (Chronic 01/26/18) 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) Mass of uterus determined by ultrasound (Chronic 12/04/16) Osteoporosis (Chronic) Plantar wart of both feet (Chronic 08/24/17) 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 Sister , AGE 56 Enlarged heart Sister No problems noted. Son No problems noted. Son No problems noted. Daughter No problems noted. Daughter No problems noted. Sister No problems noted. Maternal Grandfather , age 81 No problems noted. Social History Smoking/Tobacco Use Status: Never Second Hand Exposure: Yes Smoking risk assessment performed?: Yes Alcohol Intake: never Drug use: Never Substance use type: does not use Counseling given: No Counseling provided: none Caregiver/Support person: No Household members: children Housing: house Communication Needs: Hard of Hearing Do you need help understanding health information?: Never Pets and animals: Yes Pets and animals: cat(s) and dog(s) Sexually active: No Do you think of yourself as: straight/heterosexual Current gender identity: female What is your relationship status?: How often do you talk on the phone with friends or family?: three or more times per week How often do you get together with friends or relatives?: twice per week How often do you attend orthodox or catholic services?: decline to answer Do you belong to any clubs or organized social groups?: no Panel score (0-1 are the most socially isolated patients): 1 What type of physical activity do you participate in: walking Duration: 15-30 minutes/day Frequency: 1-2 times per week Sharee/Confucianism: Anglican Special sharee needs: No Seatbelt use: always Helmet use: No Drive intox or ride w/intox driver education road instructor: No Do you feel safe at home: Yes Do you feel safe in your relationship?: Yes Exam Narrative Exam Narrative: Constitutional: Alert and oriented x3. Appears stated age. Normal body habitus. Head: Normocephalic, no trauma. Eyes: Pupils PERRL, Red reflex noted, EOM's intact. Eyelids symmetrical without lesions, discharge, or swelling. ENT: Bilateral TM's WNL, External ear normal to inspection, no mastoid TTP, swelling, or erythema, Nasal turbinates WNL, no nasal discharge. Normal dentition, Posterior pharynx WNL, no exudate. Chest: RRR, Normal S1, S2, distal pulses intact. Resp: Lungs clear to auscultation bilaterally, no wheezes, rales, or rhonchi. Abdomen: Soft, non-distended, Normoactive bowel sounds all 4 quads. Musculoskeletal: Normal gait, 5/5 strength to all four extremities. Skin: No suspicious rashes or lesions. Capillary refill less than 2 sec. Neurologic: Cranial nerves II-XII intact. Alert and oriented x 3. Motor: No deficits noted. Sensory: Intact bilaterally all 4 extremities. Reflexes: DTR's intact bilaterally.. Hematologic/Lymphatic: No ecchymosis, no lymphadenopathy. Course Vital Signs Vital signs: Vital Signs Temperature 36.2 C L 07/23/23 12:20 Pulse 59 L 07/23/23 12:20 Respiratory Rate 18 07/23/23 12:20 Blood Pressure 140/53 L 07/23/23 12:20 Pulse Oximetry 99 07/23/23 12:20 Temperature 36.2 C L 07/23/23 12:20 Temperature Source Skin 07/23/23 12:20 Pulse 59 L 07/23/23 12:20 Respiratory Rate 18 07/23/23 12:20 Respiratory Effort Normal, Non-Labored 07/23/23 12:28 Respiratory Depth Normal 07/23/23 12:28 Respiratory Pattern Normal 07/23/23 12:28 Blood Pressure 140/53 L 07/23/23 12:20 Pulse Oximetry 99 07/23/23 12:20 Oxygen Delivery Method Room Air 07/23/23 12:20 Oxygen Flow Rate 0 07/23/23 12:20
== END 2023-07-23 14:24 | disposition home or self-care (01) ==
PROVIDERS: Emergency Provider Registered Nurse Emergency; PCP Nurse Practitioner Family
DX: S09.8XXA Other specified injuries of head, initial encounter (principal); H90.41 Sensorineural hearing loss, unilateral, right ear, with unrestricted hearing on the contralateral side; W20.8XXA Other cause of strike by thrown, projected or falling object, initial encounter
CPT/HCPCS: 99284; 70450; 99283

== ENCOUNTER 2024-03-06 04:59 | Outpatient (CLI) | payer MEDICARE, SELFPAY ==
[2024-03-06 13:02] LABS: ALT 22 U/L (14-59); AST 21 U/L (15-37); Albumin 3.9 g/dL (3.4-5.0); Alkaline Phosphatase 70 U/L (46-116); Anion Gap 7.5 mmol/L (3-11); BUN 22 mg/dL (7-18); Bilirubin, Total 0.5 mg/dL (0.2-1.0); CO2 26.5 mmol/L (21.0-32.0); CREATININE 0.9 mg/dL (0.55-1.02); Calcium 9.3 mg/dL (8.5-10.1); Calculated LDL 110 mg/dL (<100); Chloride 106 mmol/L (98-107); Cholesterol 216 mg/dL (<200); Estimated GFR 64.63 (mL/min/1.73m2); Glucose 85 mg/dL (74-106); HDL Cholesterol 94 mg/dL (40-60); Potassium 4.3 mmol/L (3.5-5.1); Sodium 140 mmol/L (136-145); Total Protein 7.1 g/dL (6.4-8.2); Triglyceride 60 mg/dL (<150)
== END 2024-03-06 05:00 | disposition home or self-care (01) ==
LOC: LOS 04:59
PROVIDERS: PCP Nurse Practitioner Family; Visit Provider Nurse Practitioner Family
DX: I10 Essential (primary) hypertension (principal); E78.00 Pure hypercholesterolemia, unspecified
CPT/HCPCS: 36415; 80053; 80061

== ENCOUNTER 2024-05-21 08:36 | Emergency (ER) | payer MEDICARE, SELFPAY ==
[2024-05-21] VITALS (21 sets, daily range): BP systolic 164–194; BP diastolic 54–117; PULSE 57–78; RESP 18; TEMP 35.7; O2SAT 95–99
--- NOTE | 2024-05-21 09:16 | ED.GENADUL_ITS ---
Discharge Plan Disposition Patient Disposition: Home Condition: Improving Discharge Details Clinical Impression: Hematuria Primary Care Provider: Camilo Singh ED Provider: Orlando Desir Home Meds and New Rx's Prescriptions: New cefpodoxime 200 mg tablet 200 mg PO BID 5 Days Qty: 10 0RF Rx Instructions: must administer with a meal/food No Action triamcinolone acetonide [Triderm] 0.1 % cream 1 applic topical BID Qty: 80 0RF hydroxyzine HCl 25 mg tablet 25 mg PO Q8H PRN (Reason: itching) Qty: 60 0RF Patient Comments: Pt states no longer taking - ML 07/22/23 aspirin [Aspir-81] 81 MG tablet,delayed release (DR/EC) 1 tab PO DAILY cholecalciferol (vitamin D3) [Vitamin D3] 1,000 UNIT capsule 1 cap PO DAILY magnesium oxide 400 MG capsule 1 cap PO DAILY garlic 1 EACH tablet 1 ea PO DAILY metoprolol succinate 25 mg tablet extended release 24 hr 25 mg PO DAILY Qty: 90 3RF atorvastatin 20 mg tablet 20 mg PO DAILY Qty: 90 3RF Paxlovid 300 mg (150 mg x 2)-100 mg tablets,dose pack See Rx Instructions PO PER PKG DIR Qty: 30 0RF Rx Instructions: PO PER PKG DIR cyanocobalamin (vitamin B-12) [Vitamin B-12] 1,000 mcg Tablet 1,000 mcg PO DAILY Discharge Instructions Instructions: Blood in Urine (Hematuria), Adult ED Additional Instructions: Please follow-up with primary care physician as well as urology. Please return to the emergency department for any worsening symptoms HPI General Date/Time Provider Initiated Documentation: 05/21/24 08:44 . HPI Narrative: 79-year-old female presents with yuliana hematuria this morning, had some dysuria last night, feeling shaky and fatigued. No chest pain or shortness of breath no nausea no vomiting no GI symptomatology. Recently recovering from COVID infection. Related Data Home Medications ?Medication ?Instructions ?Recorded ?Confirmed aspirin 81 mg tablet,delayed 1 tab PO DAILY 01/26/18 05/10/24 release (Aspir-) cholecalciferol (vitamin D3) 25 1 cap PO DAILY 02/16/18 05/10/24 mcg (1,000 unit) capsule (Vitamin D3) magnesium oxide 1 cap PO DAILY 02/16/18 05/10/24 garlic 1 ea PO DAILY 04/25/18 05/10/24 hydroxyzine HCl 25 mg tablet 25 mg PO Q8H PRN itching #60 tabs 10/14/22 05/10/24 cyanocobalamin (vitamin B-12) 1,000 mcg PO DAILY 07/23/23 05/10/24 1,000 mcg tablet (Vitamin B-12) metoprolol succinate 25 mg 25 mg PO DAILY #90 tabs 11/09/23 05/10/24 tablet,extended release 24 hr atorvastatin 20 mg tablet 20 mg PO DAILY #90 tabs 12/17/23 05/10/24 triamcinolone acetonide 0.1 % 1 applic topical BID #80 grams 03/07/24 05/10/24 topical cream (Triderm) nirmatrelvir 300 mg (150 mg See Rx Instructions PO PER PKG DIR 05/11/24 x2)-ritonavir 100 mg tablet,dose #30 tabs pack (Paxlovid) cefpodoxime 200 mg tablet 200 mg PO BID 5 days #10 tabs 05/21/24 Previous Rx's ?Medication ?Instructions ?Recorded hydroxyzine HCl 25 mg tablet 25 mg PO Q8H PRN itching #60 tabs 10/14/22 metoprolol succinate 25 mg 25 mg PO DAILY #90 tabs 11/09/23 tablet,extended release 24 hr atorvastatin 20 mg tablet 20 mg PO DAILY #90 tabs 12/17/23 triamcinolone acetonide 0.1 % 1 applic topical BID #80 grams 03/07/24 topical cream (Triderm) nirmatrelvir 300 mg (150 mg See Rx Instructions PO PER PKG DIR 05/11/24 x2)-ritonavir 100 mg tablet,dose #30 tabs pack (Paxlovid) cefpodoxime 200 mg tablet 200 mg PO BID 5 days #10 tabs 05/21/24 Allergies Allergy/AdvReac Type Severity Reaction Status Date / Time amoxicillin (From Augmentin) AdvReac Intermediate Diarrhea Verified 05/21/24 08:58 clavulanic acid (From AdvReac Intermediate Diarrhea Verified 05/21/24 08:58 Augmentin) lisinopril AdvReac Intermediate Other (See Verified 05/21/24 08:58 Comment) General Stated Complaint: Urinary CARISSA: 3 Exam Narrative Exam Narrative: Alert interactive Slight drying of oral mucosa Normal speech tolerating secretions No respiratory distress speaking in full sentences Abdomen soft nontender nondistended Alert oriented moving all extremities without deficit Course Vital Signs Vital signs: Vital Signs Temperature 35.7 C L 05/21/24 08:55 Pulse 68 05/21/24 08:55 Respiratory Rate 18 05/21/24 08:55 Blood Pressure 164/72 H 05/21/24 08:55 Pulse Oximetry 99 05/21/24 08:55 Temperature 35.7 C L 05/21/24 08:55 Temperature Source Skin 05/21/24 08:55 Pulse 68 05/21/24 08:55 Respiratory Rate 18 05/21/24 08:55 Respiratory Effort Normal, Non-Labored 05/21/24 09:09 Blood Pressure 164/72 H 05/21/24 08:55 Blood Pressure Position Sitting 05/21/24 08:55 Pulse Oximetry 99 05/21/24 08:55 Oxygen Delivery Method Room Air 05/21/24 08:55 Oxygen Flow Rate 0 05/21/24 08:55 Pain Level 0 05/21/24 08:55 Medical Decision Making 79-year-old female presents with hematuria and feeling shaky/fatigue, had dysuria last night, urinating yuliana blood this morning, denies lower GI symptoms denies fevers chills nausea or vomiting; abdomen soft nontender nondistended; slight drying of oromucosa and skin turgor; afebrile, normotensive. No focal deficits no signs of trauma. Chart review showing history of thickened endometrium/uterine mass on imaging however patient denies such history, denies history of hysterectomy; must consider pelvic malignancy versus UTI versus nephrolithiasis; will obtain basic labs type and screen coags, will provide crystalloid fluid IV, will obtain CT abdomen pelvis with contrast 11: 15 feeling better, urine is clearing. CT unremarkable labs largely unremarkable, consider UTI versus bladder polyp versus mass consider bladder mass although not visualized on CT. Will arrange for urology follow-up. 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) Mass of uterus determined by ultrasound (Chronic 12/04/16) Osteoporosis (Chronic) Plantar wart of both feet (Chronic 08/24/17) 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) Sensorineural hearing loss, unilateral (Chronic 10/07/15) Tinnitus (Chronic 10/07/15) Uterine fibroid (Chronic) Venous insufficiency (Chronic 07/23/16) Allergic rhinitis (Acute) Hyperlipidemia (Acute) Advanced directives, counseling/discussion (Acute) Medical History COVID-19 virus infection Herpes zoster Abnormal auditory perception (10/07/15) Venous insufficiency Surgical History Hx of cataract surgery Ligation of fallopian tube (~1979) Colonoscopy - MAC (02/01/17) Appendectomy (~07/2009) Family History Sister Breast cancer Mother , AGE 82 Alzheimer's dementia Father , AGE 89 No problems noted. Sister , AGE 56 Enlarged heart Sister No problems noted. Son No problems noted. Son No problems noted. Daughter No problems noted. Daughter No problems noted. Sister No problems noted. Maternal Grandfather , age 81 No problems noted. Social History Smoking/Tobacco Use Status: Never Second Hand Exposure: Yes Smoking risk assessment performed?: Yes Alcohol Intake: never Drug use: Never Substance use type: does not use Counseling given: No Counseling provided: none Caregiver/Support person: No Household members: children Housing: house Communication Needs: Hard of Hearing Do you need help understanding health information?: Never Pets and animals: Yes Pets and animals: cat(s) and dog(s) Sexually active: No Do you think of yourself as: straight/heterosexual Current gender identity: female What is your relationship status?: How often do you talk on the phone with friends or family?: three or more times per week How often do you get together with friends or relatives?: twice per week How often do you attend voodoo or pentecostal services?: decline to answer Do you belong to any clubs or organized social groups?: no Panel score (0-1 are the most socially isolated patients): 1 What type of physical activity do you participate in: walking Duration: 15-30 minutes/day Frequency: 1-2 times per week Sharee/Zoroastrian: Confucianist Special sharee needs: No Seatbelt use: always Helmet use: No Drive intox or ride w/intox limb driver: No Do you feel safe at home: Yes Do you feel safe in your relationship?: Yes
[2024-05-21 09:18] LABS: Bilirubin Negative (Negative); Blood Large (Negative); Clarity Turbid (Clear); Glucose Negative (Negative); Ketones Negative (Negative); Leukocyte Esterase Trace (Negative); Nitrite Negative (Negative); Specific Gravity >= 1.030 (1.005-1.025); Urobilinogen 0.2 mg/dL (Up to 0.2); pH 6.5 (5-8)
[2024-05-21 09:22] LABS: RBC >50 HPF (0-2)
[2024-05-21 09:23] LABS: C & S Indicated? Yes
[2024-05-21 09:25] LABS: Abs Immature Grans 0.02 10^3/uL (0.0-0.06); Absolute Basophil Count 0.02 10^3/uL (0.0-0.2); Absolute Lymphocyte Count 1.26 10^3/uL (1.2-3.4); Absolute Monocyte Count 0.52 10^3/uL (0.1-0.8); Absolute Neutrophil Count 4.33 10^3/uL (1.2-6.7); Basophils % 0.3 %; Eosinophils % 1.6 %; HCT 39.6 % (36.0-46.0); HGB 12.2 g/dL (11.2-15.7); Immature Grans % 0.3 %; Lymphocytes % 20.2 %; MCH 25.7 pg (27.0-33.0); MCHC 30.8 % (32.0-36.0); MCV 84 fL (80-95); MPV 9.7 fL (8.0-11.0); Monocytes % 8.3 %; Neutrophils % 69.3 %; Platelet Count 196 10^3/uL (130-400); RBC 4.74 10^6/uL (3.93-5.22); RDW 14.1 % (11.7-14.6); RDW-SD 42.5 fL; WBC 6.25 10^3/uL (4.4-10.8)
[2024-05-21 09:40] LABS: ALT 21 U/L (14-59); AST 17 U/L (15-37); Albumin 3.7 g/dL (3.4-5.0); Alkaline Phosphatase 63 U/L (46-116); Anion Gap 7.5 mmol/L (3-11); BUN 17 mg/dL (7-18); CO2 25.5 mmol/L (21.0-32.0); CREATININE 1.1 mg/dL (0.55-1.02); Chloride 101 mmol/L (98-107); Estimated GFR 50.48 (mL/min/1.73m2); Glucose 93 mg/dL (74-106); Potassium 3.7 mmol/L (3.5-5.1); Sodium 134 mmol/L (136-145)
[2024-05-21 09:55] LABS: INR 1.1 (0.9-1.1); PTT Activated 26.3 sec (23.6-32.8); Prothrombin Time 10.6 sec (9.1-11.1)
[2024-05-21] MEDS: Normal Saline 1,000 ML 1000 ML IV (10:01)
[2024-05-21] MEDS: Normal Saline - Diluent 50 ML VIAL IJ (10:14)
[2024-05-21] MEDS: Omnipaque 350 MG/ML 100 ML BTL IJ (10:15)
--- NOTE | 2024-05-21 10:36 | DI.CT_ITS ---
Exam(s) CT ABDOMEN PELVIS W EXAM: CT ABDOMEN PELVIS W CLINICAL HISTORY: hematuria; pelvic malignancy v stone v uti TECHNIQUE: Imaging Protocol: Axial computed tomography images with coronal and sagittal reformatted images were created and reviewed. CONTRAST MATERIAL: Intravenous: Omnipaque 350 Contrast volume:100 mL Oral: No COMPARISON: CT PELVIC/LOWER ABD WITH CON(P) from 07/30/2009 CT ABD PELVIS WITH CONTRAST from 07/30/[address] ABDOMEN PELVIS WO from 04/13/[address] RENAL COLIC WO from 04/21/2023 FINDINGS: ABDOMEN: Lung Bases: Normal where visualized. Liver: Normal density. No measurable mass. Portal, Superior Mesenteric, and Splenic Veins: Unremarkable. Gallbladder and Biliary Tract: No radiodense calculus or dilation. Pancreas: Normal density, no abnormal calcifications or inflammatory process. Spleen: Normal. Adrenals: No masses seen. Kidneys: Normal size, contour and axis. No radiodense stones or obstructive uropathy. No masses seen. 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 Abdominal Aorta: Abdominal portion non-dilated. Atherosclerotic calcification is present. Bowel: No obstruction or bowel wall thickening. No evidence of appendicitis. Peritoneal Cavity: No ascites, collection or mesenteric inflammatory response. No free air. Lymph Nodes: Within normal limits. Bones: Within normal limits for the patient's age. There is grade 1 anterolisthesis of L4 on L5. Soft Tissues: There is a fat containing umbilical hernia. There is unchanged dilatation of the right femoral vein. PELVIS: Bladder: Symmetric distention, no gross wall thickening. Reproductive Organs: Unremarkable as visualized. Lymph Nodes: Within normal limits. Bones: Within normal limits for the patient's age. IMPRESSION: No acute abdominal or pelvic process. RADIATION DOSE DELIVERED: Total DLP DATA REPOSITORY: All CT scans at this facility are submitted to the National Radiology Data Registry (NRDR) Dose Index Registry (DIR) with the [employer] (ACR). RADIATION OPTIMIZATION: All CT scans at this facility use at least one of these dose optimization te chniques: automated exposure control; mA and/or kV adjustment per patient size (includes targeted exa ms where dose is matched to clinical indication); or iterative reconstruction.
--- NOTE | 2024-05-21 10:50 | DI.VRAD_ITS ---
PROCEDURE INFORMATION: Exam: CT Abdomen And Pelvis With Contrast Exam date and time: 05/21/2024 10:11 AM Age: 79 years old Clinical indication: Other: Hematuria, pelvic malignancy vs stone vs UTI TECHNIQUE: Imaging protocol: Computed tomography of the abdomen and pelvis with contrast. Radiation optimization: All CT scans at this facility use at least one of these dose optimization techniques: automated exposure control; mA and/or kV adjustment per patient size (includes targeted exams where dose is matched to clinical indication); or iterative reconstruction. Contrast material: OMNIPAQUE; Contrast volume: 100 ml; Contrast route: INTRAVENOUS (IV); COMPARISON: CT RENAL COLIC WO 04/21/2023 7:55 PM FINDINGS: Heart: Cardiomegaly. Liver: Normal. Mild fatty infiltration along the falciform ligament. Gallbladder and biliary ducts: Normal. No calcified stones. No ductal dilation. Pancreas: Normal. No ductal dilation. Spleen: Normal. No splenomegaly. Adrenal glands: Normal. No mass. Kidneys and ureters: Duplex left kidney. No hydronephrosis. Stomach and bowel: No obstruction. No mucosal thickening. Appendix: No evidence of appendicitis. Intraperitoneal space: No free air. No significant fluid collection. Vasculature: No abdominal aortic aneurysm. Small saccular dilation off of the right femoral vein, unchanged. Lymph nodes: No enlarged lymph nodes. Urinary bladder: Unremarkable as visualized. Reproductive: Unremarkable as visualized. Bones/joints: No acute fracture. Transitional lumbosacral anatomy. Soft tissues: Fat containing periumbilical hernia. IMPRESSION: No acute findings. Dictated and Authenticated by: Milagros Demarco MD. Ordering:RANJIT Perry MD
[2024-05-21] MEDS: Cefpodoxime 200 MG TAB PO (11:16)
--- NOTE | 2024-05-21 11:22 | NUR.NOTE ---
Referral faxed to Urology for a follow up to ER visit for Hematuria sometime during the week
== END 2024-05-21 11:40 | disposition home or self-care (01) ==
PROVIDERS: Emergency Provider Emergency Medicine; PCP Nurse Practitioner Family
DX: R30.0 Dysuria (principal); R31.9 Hematuria, unspecified; I10 Essential (primary) hypertension; E78.5 Hyperlipidemia, unspecified; Z79.82 Long term (current) use of aspirin
CPT/HCPCS: 36415; 80053; 86850; 86900; 86901; 87077; 96360; 99285; 74177; 81003; 81015; 85025; 85610; 85730; 87086; 87186; 99284; J3490

== ENCOUNTER → 2024-07-13 12:32 | Outpatient (BNVA) | payer MEDICARE, SELFPAY | PROVIDERS: PCP Nurse Practitioner Family; Referring Provider Nurse Practitioner Family; Visit Provider Nurse Practitioner Gerontology | DX: R31.0 Gross hematuria (principal) | CPT/HCPCS: 81003; 99215 ==

== ENCOUNTER 2025-02-22 03:39 | Outpatient (CLI) | payer MEDICARE, SELFPAY ==
[2025-02-22 12:34] LABS: ALT 24 U/L (14-59); AST 29 U/L (15-37); Albumin 3.9 g/dL (3.4-5.0); Alkaline Phosphatase 73 U/L (46-116); Anion Gap 4.8 mmol/L (3-11); BUN 17 mg/dL (7-18); Bilirubin, Total 0.6 mg/dL (0.2-1.0); CO2 29.2 mmol/L (21.0-32.0); CREATININE 0.9 mg/dL (0.55-1.02); Calcium 9.3 mg/dL (8.5-10.1); Calculated LDL 69 mg/dL (<100); Chloride 107 mmol/L (98-107); Cholesterol 174 mg/dL (<200); Estimated GFR 64.23 (mL/min/1.73m2); Glucose 82 mg/dL (74-106); HDL Cholesterol 96 mg/dL (>or=50); Potassium 4.3 mmol/L (3.5-5.1); Sodium 141 mmol/L (136-145); Total Protein 7.2 g/dL (6.4-8.2); Triglyceride 45 mg/dL (<150)
== END 2025-02-22 03:40 | disposition home or self-care (01) ==
LOC: LOS 03:40
PROVIDERS: PCP Nurse Practitioner Family; Visit Provider Nurse Practitioner Family
DX: E78.00 Pure hypercholesterolemia, unspecified (principal)
CPT/HCPCS: 36415; 80053; 80061

== ENCOUNTER 2025-08-22 21:07 | Outpatient (REF) | payer MEDICARE, SELFPAY | END 2025-08-22 21:08 | disposition home or self-care (01) | LOC: LBN 21:07 | PROVIDERS: PCP Nurse Practitioner Family; Visit Provider Nurse Practitioner Family | DX: L98.9 Disorder of the skin and subcutaneous tissue, unspecified (principal) | CPT/HCPCS: 87077; 87070; 87186; 87205 ==

== ENCOUNTER 2025-10-22 00:45 | Outpatient (CLI) | payer MEDICARE, SELFPAY ==
[2025-10-23 10:20] LABS: Lyme Ab w Rflx to Lyme Confirm Negative (Negative)
== END 2025-10-22 00:46 | disposition home or self-care (01) ==
LOC: LBO 00:45
PROVIDERS: PCP Nurse Practitioner Family; Visit Provider Nurse Practitioner Family
DX: T14.90XA Injury, unspecified, initial encounter (principal); W57.XXXA Bitten or stung by nonvenomous insect and other nonvenomous arthropods, initial encounter
CPT/HCPCS: 36415; 87798; 86618